=== PATIENT | male | born 1950 | race Caucasian/White ===

== ENCOUNTER 2016-03-31 15:05 | Emergency (ER) | payer OTHER ==
[~2016-03-31] VITALS: Ht 167.6 cm; Wt 77.1 kg
[~2016-03-31 15:05] MED LIST: 'XANAX0.5 MG PO; 'XANAX1 MG PO; ALBUTEROL0.09 MG/A2 IH; ALPRAZOLAM0.5 M1 PO; ALPRAZOLAM0.5 M3 PO; ANTIVERT25 MG PO; ASPIRIN81 M1 PO; AVPAK PRIMIDON250 M1 PO; AVPAK PRIMIDONE50 M1 PO; BACTRIM DS 8001 TA1 PO; BACTROBAN2% TP; BENTYL20 MG PO; BUPROPION HCL300 MG PO; BUPROPION300 MG PO; CEPHALEXIN500 M1 PO; CIPRO500 MG PO; COUMADIN2 M1 PO; FINASTERIDE5 M1 PO; FINASTERIDE5 MG PO; FLAGYL500 MG PO; FLEXERIL10 MG PO; FOLIC ACID1 MG PO; GABAPENTIN TAB600 MG PO; GABAPENTIN800 MG PO; Gabapentin PO; HYDROCODONE BIT1 T11 PO; INDERAL LA60 M1 PO; INDERAL80 MG PO; Inderal LA PO; KEFLEX500 M1 PO; LEVOTHROID0.05 MG PO; LITHIUM CARB300 MG PO; LITHIUM CARBON300 MG PO; METFORMIN500 MG PO; MIRTAZAPINE45 MG PO; Mysoline50 MG PO; NEURONTIN100 MG PO; Orphenadrine C100 MG PO; PAROXETINE20 MG PO; PHARMASSURE FO0.4 MG PO; PRILOSEC20 MG PO; Synthroid,Levo75 MCG PO; TEMAZEPAM30 MG PO; TERAZOSIN HCL2 M1 PO; TRAMADOL HCL50 MG PO; TRAZODONE50 MG PO; ULTRAM50 MG PO; VICODIN ES 7501 TAB PO; VITAMIN B125000 MCG SL; VITAMIN D5000 I3 PO; WARFARIN SOD5 MG PO; WARFARIN2 MG PO; WELLBUTRIN XL300 MG PO; ZOVIRAX800 MG PO
[2016-03-31] MEDS ORDERED: AMLODIPINE BESYL5 MG PO (15:40)
[2016-03-31] MEDS ORDERED: PROSCAR5 M1 PO (15:41)
[2016-03-31 16:17] LABS: BASO % 0.7 % (0.0-1.0); EOS # 0.3 10*3/uL (0.0-0.4); EOS % 5.1 % (1.0-4.0); HEMATOCRIT 40.3 % (42.0-52.0); HEMOGLOBIN 12.9 g/dl (14.0-18.0); LYMPH # 1.9 10*3/uL (1.3-4.4); LYMPH % 34.5 % (27.0-41.0); MEAN CORPUSCULAR HGB 32.7 pg (27.0-31.0); MEAN PLATELET VOLUME 9.4 fl (9.6-12.3); MONO # 0.3 10*3/uL (0.1-1.0); MONO % 4.5 % (3.0-9.0); PLATELET COUNT AUTOMATED 177 10*3/uL (130-400); RED BLOOD COUNT 3.95 10*6/uL (4.50-5.90); RED CELL DISTRI WIDTH 12.6 % (0-14.5); WHITE BLOOD COUNT 5.5 10*3/uL (4.8-10.8)
[2016-03-31 16:27] LABS: PROTHROMBIN TIME 10.6 SECONDS (9.0-12.4)
[2016-03-31 16:41] LABS: ALBUMIN 3.7 gm/dl (3.1-4.5); BILIRUBIN, TOTAL 0.4 mg/dl (0.2-1.0); POTASSIUM 3.9 mmol/L (3.5-5.1); TOTAL PROTEIN 7.4 gm/dL (6.4-8.2)
[2016-03-31 16:45] LABS: MAGNESIUM 1.9 mg/dL (1.5-2.1)
[2016-03-31 17:59] LABS: BILIRUBIN 1+ (NEGATIVE); BLOOD NEGATIVE (NEGATIVE); CLARITY SL CLOUDY (CLEAR); COLOR YELLOW (YELLOW); GLUCOSE NEGATIVE (NEGATIVE); KETONE TRACE (NEGATIVE); LEUKO ESTERASE NEGATIVE (NEGATIVE); NITRITE NEGATIVE (NEGATIVE); PH 5.5 (5.0-9.0); PROTEIN 1+ (NEGATIVE); SPECIFIC GRAVITY 1.025 (1.005-1.030); UROBILINOGEN 0.2 E.U./dl (0.2-1.0)
[2016-03-31 18:16] LABS: HYALINE CAST TNTC
[2016-03-31 18:17] LABS: URINE REFLEX COMMENT YES (NO)
== END 2016-03-31 18:04 | disposition home or self-care (01) ==
LOC: ED 15:05
PROVIDERS: Registered Nurse
DX: G25.0 Essential tremor (principal); R06.09 Other forms of dyspnea; R53.1 Weakness; R53.83 Other fatigue; R19.7 Diarrhea, unspecified; Z79.899 Other long term (current) drug therapy

== ENCOUNTER → 2016-07-14 | Outpatient (CLI) | payer OTHER ==
[~2016-07-14] MED LIST changes: +AMLODIPINE BESYL5 MG PO; +PROSCAR5 M1 PO
[2016-07-14 09:32] LABS: HEMOGLOBIN A1c 4.8 % (4.8-5.6)
[2016-07-14 09:42] LABS: ALBUMIN 3.6 gm/dl (3.1-4.5); BILIRUBIN, DIRECT < 0.1 mg/dL (0.0-0.2); BILIRUBIN, TOTAL 0.3 mg/dl (0.2-1.0); BUN 11 mg/dl (7-24); CARBON DIOXIDE 27 mmol/L (21-32); CHLORIDE 111 mmol/L (98-107); CHOLESTEROL 203 mg/dL (<200); EST GLOM FILT AFRICAN AMERICAN 57 ml/min; GLUCOSE 134 mg/dL (65-99); POTASSIUM 4.3 mmol/L (3.5-5.1); SGOT/AST 12 IU/L (3-35); SGPT/ALT 16 U/L (12-78); SODIUM 146 mmol/L (136-145); THYROXINE (T4) TOTAL 8.2 ug/dl (4.5-12.1); TOTAL PROTEIN 7.1 gm/dL (6.4-8.2); TRIGLYCERIDES 202 mg/dl (<150); VLDL CHOLESTEROL 40 mg/dL (6-40)
[2016-07-14 09:45] LABS: BASO % 0.5 % (0.0-1.0); EOS # 0.4 10*3/uL (0.0-0.4); EOS % 6.4 % (1.0-4.0); HEMATOCRIT 40.4 % (42.0-52.0); LYMPH # 2.3 10*3/uL (1.3-4.4); LYMPH % 36.4 % (27.0-41.0); MEAN CELL VOLUME 105.5 fl (80.0-94.0); MEAN CORPUSCULAR HGB 31.3 pg (27.0-31.0); MEAN CORPUSCULAR HGB CONC 29.7 g/dl (33.0-37.0); MEAN PLATELET VOLUME 9.6 fl (9.6-12.3); MONO # 0.3 10*3/uL (0.1-1.0); NEUT # 3.3 10*3/uL (2.3-7.9); NEUT % 51.4 % (47.0-73.0); PLATELET COUNT AUTOMATED 212 10*3/uL (130-400); RED BLOOD COUNT 3.83 10*6/uL (4.50-5.90); RED CELL DISTRI WIDTH 13.3 % (0-14.5); WHITE BLOOD COUNT 6.4 10*3/uL (4.8-10.8)
[2016-07-14 09:49] LABS: ALKALINE PHOSPHATASE 94 U/L (45-117); HDL CHOLESTEROL 43 mg/dl (40-60); LDL CHOLESTEROL 120 mg/dL (9-159)
== END | disposition home or self-care (01) ==
LOC: LAB 08:28
PROVIDERS: Nurse Practitioner Adult Health
DX: F31.81 Bipolar II disorder (principal); Z79.899 Other long term (current) drug therapy

== ENCOUNTER 2016-09-15 21:49 | Inpatient (IN) | payer OTHER ==
[~2016-09-15] VITALS: Ht 167.6 cm; Wt 63.5 kg
--- NOTE | ~2016-09-15 | PR ---
[employer], [place] PROGRESS NOTE NAME: BETZAIDA MANN UNIT #: [id number] ROOM: 407 DOCTOR: MARIELLE ANDRADE MD BIRTHDATE: [birth year] DOS: SUBJECTIVE: The patient is sitting up in a chair, states that he was unable to sleep that he takes normally 2 tablets of Xanax at home, he only had one tablet here. OBJECTIVE: VITAL SIGNS: Graphic trend shows blood pressure 144/74, pulse is 63, respirations 16, temperature 98. LUNGS: Clear. HEART: Regular. ABDOMEN: Obese, soft, nontender. EXTREMITIES: Without any edema. ASSESSMENT AND PLAN: 1. Frailty with falls, probably from underlying Parkinson's disease. 2. Adult failure to thrive for placement to a local nurse rehab facility. Hopefully he will be able to go tomorrow. 3. Type 2 diabetes mellitus. Blood sugars not available. We will start blood sugar checks. MARIELLE ANDRADE MD CM:PNTRANS [id number] MARIELLE ANDRADE MD 09/19/16 0750 interface
--- NOTE | ~2016-09-15 | DS ---
[place], [place] DISCHARGE SUMMARY NAME: BETZAIDA MANN UNIT #: [id number] ROOM: 407 DOCTOR: MARIELLE ANDRADE MD BIRTHDATE: [birth year] DOS: 09/20/2016 DIAGNOSES: 1. Adult failure to thrive. 2. Parkinson's with multiple falls. 3. Benign hypertension. 4. History of brain stimulator placement. 5. Bipolar disorder. 6. Megaloblastic anemia. 7. History of pulmonary embolism, on long-term use of anticoagulants. This was discontinued finally because of the multiple falls. 8. Type 2 diabetes mellitus, non-insulin dependent. MEDICATIONS: Omeprazole 20 daily, metformin 500 b.i.d., finasteride 5 mg daily, folic acid 0.4 mg daily, levothyroxine 75 mcg daily, vitamin D 5000 units daily, gabapentin 600 q.i.d., bupropion 300 mg daily, Xanax 0.5 mg twice a day p.r.n. for anxiety, lithium 300 mg twice a day, Flomax 0.4 daily, Avodart 0.5 daily. HOSPITAL COURSE: This patient is 65 years old, was brought in to Dr. Chavez's services after multiple falls at home. The patient was admitted and was monitored. PT, OT consultation, social service consult was obtained. He was encouraged to go to a rehab center for PT, OT. The patient is agreeable to do that and so the plan is to discharge him to home. CT of the head did not show any acute abnormalities. Blood sugars have been checked and they are controlled. We will need to have his brain stimulator checked at [facility]. His is making the appointments for that. Please make sure that he has arrangements to travel there for that appointment if he is at the group home at the time of the appointment. He is going to a local group home for PT, OT today. DIET: ADA 1800. [place], [place] DISCHARGE SUMMARY NAME: BETZAIDA MANN UNIT #: [id number] ROOM: 407 DOCTOR: MARIELLE ANDRADE MD BIRTHDATE: [birth year] MARIELLE ANDRADE MD CM:ROMEO [phone] MARIELLE ANDRADE MD 09/20/16 0856 interface
--- NOTE | ~2016-09-15 | PR ---
[place], [place] PROGRESS NOTE [id number] UNIT #: [id number] ROOM: 407 DOCTOR: MARIELLE ANDRADE MD BIRTHDATE: [birth year] DOS: SUBJECTIVE: The patient is feeling good, has no complaints. OBJECTIVE EXAMINATION: VITAL SIGNS: Graphic trend shows pressure 132/70, pulse is 67, respirations 17, temperature 97.7. LUNGS: Clear. HEART: Regular. ABDOMEN: Obese, soft. EXTREMITIES: Without any edema. ASSESSMENT AND PLAN: 1. Frailty with falls. The patient is getting PT, OT here. 2. Adult failure to thrive with ambulatory dysfunction. The patient to go to [facility] when bed is available. 3. Long-term use of anticoagulants. The patient is no longer on Coumadin because of the continued falls. MARIELLE ANDRADE MD CM:PNTRANS [phone] MARIELLE ANDRADE MD 09/18/16 0955 interface
--- NOTE | ~2016-09-15 | PR ---
[place], [place] PROGRESS NOTE NAME: BETZAIDA MANN UNIT #: [id number] ROOM: 407 DOCTOR: SABA MACK MD BIRTHDATE: [birth year] DOS: 09/17/2016 SUBJECTIVE: The patient says he is ambulating a little better than yesterday. OBJECTIVE: GENERAL APPEARANCE: The patient is alert and oriented x 3, in no visible distress. VITAL SIGNS: Blood pressure 132/68, heart rate of 57 beats per minute, breathing 20 times per minute, temperature 98.4 degrees Fahrenheit. HEENT AND NECK: Exam within normal limits. CARDIOVASCULAR SYSTEM: Heart rate is regular in rate and rhythm. S1 and S2 normally audible. LUNGS: Clear to auscultation. ABDOMEN: Soft, nontender. No obvious organomegaly. Bowel sounds are present. EXTREMITIES: Without significant cyanosis or edema. IMPRESSION: 1. The patient with generalized weakness and failure to thrive with chronic gait abnormality. The patient was literally walking into the singh yesterday evening, so I delayed his discharge to home. This morning, he is still walking but walking with minimal assist. The patient is very high risk for falling at home and his anticoagulation with Coumadin has been held back. The patient fell back and hit back of his head requiring mehdi for the laceration. I will try to get him to a group home facility for rehabilitation, so he is safer with his ambulation because he is living by himself at home these days. 2. Benign essential tremors, treated with brain stimulator. 3. Hypothyroidism, treated with levothyroxine. 4. Gastroesophageal reflux disease and esophagitis, asymptomatic with omeprazole. 5. Type 2 diabetes mellitus. Blood sugars are reasonably controlled. 6. History of pulmonary embolism, presently asymptomatic. The patient had to be taken off anticoagulation because he keeps falling and also this time hit the back of his head. [place], [place] PROGRESS NOTE NAME: BETZAIDA MANN UNIT #: [id number] ROOM: 407 DOCTOR: SABA MACK MD BIRTHDATE: [birth year] SABA MACK MD CM:PNTRANS [id number] SABA MACK MD 09/18/16 0022 interface
--- NOTE | ~2016-09-15 | PR ---
[place], [place] PROGRESS NOTE NAME: BETZAIDA MANN UNIT #: [id number] ROOM: 407 DOCTOR: MARIELLE ANDRADE MD BIRTHDATE: [birth year] DOS: SUBJECTIVE: The patient is doing fine without any complaints. OBJECTIVE: VITAL SIGNS: Graphic trend shows a pressure of 127/68, pulse of 57, respirations 20, temperature 98.6. LUNGS: Clear. HEART: Regular. ABDOMEN: Obese, soft. EXTREMITIES: Without any edema. LABORATORY DATA: White blood cell count is 6.4, hemoglobin 10.1, hematocrit 32.6. BMP: Glucose 90, BUN 14, creatinine 1.33. GFR is 54, stage 3 renal failure. Potassium is 4.4. ASSESSMENT AND PLAN: 1. Adult failure to thrive for placement today to a local fpc. Awaiting certification from the insurance company. 2. Parkinson's with multiple falls on physical therapy. MARIELLE ANDRADE MD CM:PNTRANS [id number] MARIELLE ANDRADE MD 09/20/16 1017 interface
--- NOTE | ~2016-09-15 | WRIGHTHP ---
[place], [place] PATIENT HISTORY AND PHYSICAL EXAM NAME: BETZAIDA MANN [facility] #: [id number] UNIT #: [id number] ROOM: 407 DOCTOR: SABA MACK MD BIRTHDATE: [birth year] DOS: 09/16/2016 HISTORY OF PRESENT ILLNESS: The patient is a 65-year-old gentleman with a past medical history of; 1. Generalized weakness, failure to thrive with recurrent falls, history of coronary artery disease of the [place] vessels. 2. Benign essential hypertension. 3. History of pulmonary embolism. 4. History of diverticular bleeds in the past. 5. Bipolar disorder. 6. Bright's esophagus. 7. Right inguinal hernia repair. 8. Megaloblastic anemia in the past and folic acid deficiency. Brain stimulator placed for controlling essential tremors. The patient presented to the Emergency Department after he fell at home and hit his head. In the ER, the patient was evaluated with a CT of the head and was found to have a laceration at the back of the head, which was closed with mehdi. The patient had unsteady gait and was admitted for further management. After admission, the patient still has very unsteady gait and he is living by himself these days. No chest pain, no shortness of breath, no GI or urinary symptoms. REVIEW OF SYSTEMS: LUNGS: No shortness of breath or wheezing. GASTROINTESTINAL: No nausea, vomiting, diarrhea or constipation. CARDIOVASCULAR: No palpitations or chest pains. FAMILY HISTORY: Noncontributory. MEDICATIONS: The patient takes Flomax, omeprazole, metformin, lithium, gabapentin, finasteride, bupropion, levothyroxine, Xanax. ALLERGIES: No known drug allergies. FAMILY HISTORY: Noncontributory. PHYSICAL EXAMINATION: GENERAL APPEARANCE: He is alert and oriented x 3, in no visible distress. When he walks, he is unable to walk straight and he is running into singh. HEENT AND NECK: Extraocular movements are intact. Sclerae are anicteric. Oral mucosa is moist and clean. No obvious facial weakness. Neck is supple without any lymphadenopathy. No thyromegaly. No JVD. No carotid arterial bruits. LUNGS: Clear to auscultation. No wheezing. No rhonchi. CARDIOVASCULAR SYSTEM: Heart rate is regular in rate and rhythm. S1 and S2 normally audible. No significant murmur or any other abnormal cardiac sounds. ABDOMEN: Soft, nontender. No obvious organomegaly. Bowel sounds are present. No obvious herniation. EXTREMITIES: Without significant cyanosis or edema. Warm to touch. CENTRAL NERVOUS SYSTEM: Normal other than his gait. [place], [place] PATIENT HISTORY AND PHYSICAL EXAM NAME: BETZAIDA MANN UNIT #: [id number] ROOM: 407 DOCTOR: SABA MACK MD BIRTHDATE: [birth year] LABORATORY DATA: CT of the head and cervical spine were without any acute abnormality. IMPRESSION AND PLAN: 1. The patient with generalized weakness and adult failure to thrive with very poor gait and recurrent falls. I will try to get him to [facility] facility for rehabilitation. The patient is living by himself these days. 2. Benign essential tremors, controlled with brain stimulator. 3. Benign prostatic hypertrophy and urinary retention controlled with finasteride and Flomax. 4. Gastroesophageal reflux disease and esophagitis, asymptomatic with omeprazole. 5. Type 2 diabetes mellitus. I will monitor blood sugars and treat accordingly. The patient is on metformin. 6. Hypothyroidism, treated with levothyroxine. 7. Recurrent falls with laceration to the back of the head, treated with mehdi. CT scan of the head did not show any acute abnormality. SABA MACK MD CM:HISPHYS:PATIENT HISTORY AND PHYSICAL EXAMINATION 32 24 SABA MACK MD 09/16/162223 interface
[2016-09-15 22:06] VITALS: BP 103/65
[2016-09-16 01:25] VITALS: BP 142/65
[2016-09-16] MEDS ORDERED: AVODART0.5 M1 PO (01:52)
[2016-09-16] MEDS ORDERED: FLOMAX0.4 MG PO (01:52)
[2016-09-16 08:00] VITALS: BP 114/72
[2016-09-16 16:00] VITALS: BP 138/73
[2016-09-16 21:37] VITALS: BP 119/62
[2016-09-17] VITALS: BP 110/65
[2016-09-17 06:12] LABS: BASO % 0.4 % (0.0-1.0); EOS # 0.4 10*3/uL (0.0-0.4); EOS % 7.2 % (1.0-4.0); HEMOGLOBIN 10.6 g/dl (14.0-18.0); LYMPH # 2.4 10*3/uL (1.3-4.4); LYMPH % 43.4 % (27.0-41.0); MEAN CELL VOLUME 101.8 fl (80.0-94.0); MEAN CORPUSCULAR HGB 31.7 pg (27.0-31.0); MEAN CORPUSCULAR HGB CONC 31.2 g/dl (33.0-37.0); MEAN PLATELET VOLUME 9.9 fl (9.6-12.3); MONO # 0.3 10*3/uL (0.1-1.0); MONO % 5.7 % (3.0-9.0); NEUT # 2.4 10*3/uL (2.3-7.9); NEUT % 43.1 % (47.0-73.0); PLATELET COUNT AUTOMATED 159 10*3/uL (130-400); RED BLOOD COUNT 3.34 10*6/uL (4.50-5.90); RED CELL DISTRI WIDTH 13.2 % (0-14.5); WHITE BLOOD COUNT 5.4 10*3/uL (4.8-10.8)
[2016-09-17 06:50] LABS: POTASSIUM 4.3 mmol/L (3.5-5.1)
[2016-09-17 08:00] VITALS: BP 132/68
[2016-09-17 16:00] VITALS: BP 127/67; BP 137/70
[2016-09-17 20:00] VITALS: BP 120/67
[2016-09-18] VITALS: BP 132/70
[2016-09-18 08:00] VITALS: BP 126/70
[2016-09-18 12:00] VITALS: BP 132/65
[2016-09-18 16:00] VITALS: BP 141/67
[2016-09-18 20:00] VITALS: BP 129/70
[2016-09-19] VITALS: BP 144/74
[2016-09-19 08:00] VITALS: BP 160/76
[2016-09-19 16:00] VITALS: BP 136/80
[2016-09-19 20:00] VITALS: BP 115/67
[2016-09-20] VITALS: BP 127/68
[2016-09-20 06:28] LABS: BASO % 0.6 % (0.0-1.0); EOS # 0.4 10*3/uL (0.0-0.4); EOS % 6.7 % (1.0-4.0); HEMATOCRIT 32.6 % (42.0-52.0); HEMOGLOBIN 10.1 g/dl (14.0-18.0); LYMPH # 2.8 10*3/uL (1.3-4.4); LYMPH % 43.6 % (27.0-41.0); MEAN CELL VOLUME 102.2 fl (80.0-94.0); MEAN CORPUSCULAR HGB 31.7 pg (27.0-31.0); MEAN PLATELET VOLUME 9.6 fl (9.6-12.3); MONO # 0.3 10*3/uL (0.1-1.0); MONO % 5.2 % (3.0-9.0); NEUT # 2.8 10*3/uL (2.3-7.9); NEUT % 43.6 % (47.0-73.0); PLATELET COUNT AUTOMATED 169 10*3/uL (130-400); RED BLOOD COUNT 3.19 10*6/uL (4.50-5.90); RED CELL DISTRI WIDTH 13.2 % (0-14.5); WHITE BLOOD COUNT 6.4 10*3/uL (4.8-10.8)
[2016-09-20 06:58] LABS: BUN 14 mg/dl (7-24); CARBON DIOXIDE 28 mmol/L (21-32); CHLORIDE 109 mmol/L (98-107); EST GLOM FILT AFRICAN AMERICAN > 60 ml/min; GLUCOSE 90 mg/dL (65-99); POTASSIUM 4.3 mmol/L (3.5-5.1); SODIUM 144 mmol/L (136-145)
[2016-09-20 08:00] VITALS: BP 132/80
[2016-09-20 16:00] VITALS: BP 146/68
[2016-09-21] VITALS: BP 150/67
[2016-09-21 08:00] VITALS: BP 170/78
[2016-09-22] VITALS: BP 106/58
[2016-09-22 08:00] VITALS: BP 110/63
== END 2016-09-22 12:02 | disposition home health service (06) | DRG 581 ==
LOC: ED 21:49 → 4E 23:56 → EDHOLD 23:56 → 4E 09-16 00:11
PROVIDERS: Internal Medicine
PROC: 0WQ0XZZ Repair Head, External Approach (ICD-10-PCS; principal; 2016-09-15)
DX: S01.01XA Laceration without foreign body of scalp, initial encounter (principal); G20 Parkinson's disease; D53.1 Other megaloblastic anemias, not elsewhere classified; R62.7 Adult failure to thrive; W18.39XA Other fall on same level, initial encounter; Y93.89 Activity, other specified; Y92.098 Other place in other non-institutional residence as the place of occurrence of the external cause; Y99.8 Other external cause status; R53.1 Weakness; Z86.711 Personal history of pulmonary embolism; K22.70 Barrett's esophagus without dysplasia; N40.0 Benign prostatic hyperplasia without lower urinary tract symptoms; R33.9 Retention of urine, unspecified; K21.0 Gastro-esophageal reflux disease with esophagitis; E11.9 Type 2 diabetes mellitus without complications; E03.9 Hypothyroidism, unspecified; Z79.01 Long term (current) use of anticoagulants; R26.81 Unsteadiness on feet; F31.9 Bipolar disorder, unspecified; I10 Essential (primary) hypertension

== ENCOUNTER 2016-09-26 20:12 | Emergency (ER) | payer OTHER ==
[~2016-09-26] VITALS: Ht 167.6 cm; Wt 63.5 kg
[~2016-09-26 20:12] MED LIST changes: +AVODART0.5 M1 PO; +FLOMAX0.4 MG PO
== END 2016-09-26 22:14 | disposition home or self-care (01) ==
LOC: ED 20:12
DX: S20.212A Contusion of left front wall of thorax, initial encounter (principal); E11.9 Type 2 diabetes mellitus without complications; I25.2 Old myocardial infarction; Z79.899 Other long term (current) drug therapy; W01.198A Fall on same level from slipping, tripping and stumbling with subsequent striking against other object, initial encounter; Y93.89 Activity, other specified; Y92.091 Bathroom in other non-institutional residence as the place of occurrence of the external cause; Y99.8 Other external cause status

== ENCOUNTER 2016-10-06 15:18 | Inpatient (IN) | payer OTHER ==
[~2016-10-06] VITALS: Ht 167.6 cm; Wt 70.5 kg
[2016-10-06 15:24] VITALS: BP 139/80
[2016-10-06 16:02] LABS: BASO % 0.5 % (0.0-1.0); EOS # 0.4 10*3/uL (0.0-0.4); EOS % 6.6 % (1.0-4.0); HEMOGLOBIN 11.3 g/dl (14.0-18.0); LYMPH # 2.3 10*3/uL (1.3-4.4); LYMPH % 38.8 % (27.0-41.0); MEAN CELL VOLUME 99.2 fl (80.0-94.0); MEAN CORPUSCULAR HGB 31.1 pg (27.0-31.0); MEAN CORPUSCULAR HGB CONC 31.4 g/dl (33.0-37.0); MEAN PLATELET VOLUME 9.7 fl (9.6-12.3); MONO # 0.3 10*3/uL (0.1-1.0); MONO % 4.5 % (3.0-9.0); NEUT # 2.9 10*3/uL (2.3-7.9); NEUT % 49.4 % (47.0-73.0); PLATELET COUNT AUTOMATED 186 10*3/uL (130-400); RED BLOOD COUNT 3.63 10*6/uL (4.50-5.90); RED CELL DISTRI WIDTH 13.2 % (0-14.5); WHITE BLOOD COUNT 5.8 10*3/uL (4.8-10.8)
[2016-10-06 16:11] LABS: PROTHROMBIN TIME 10.7 SECONDS (9.0-12.4)
[2016-10-06 16:18] LABS: ALBUMIN 3.3 gm/dl (3.1-4.5); ALKALINE PHOSPHATASE 110 U/L (45-117); BILIRUBIN, TOTAL 0.3 mg/dl (0.2-1.0); BUN 14 mg/dl (7-24); C-REACTIVE PROTEIN 1.72 MG/DL (0-0.3); CARBON DIOXIDE 23 mmol/L (21-32); CHLORIDE 108 mmol/L (98-107); CKMB 0.6 ng/ml (0.5-3.6); CPK 30 U/L (39-308); EST GLOM FILT AFRICAN AMERICAN 50 ml/min; GLUCOSE 116 mg/dL (65-99); MAGNESIUM 1.9 mg/dL (1.5-2.1); SGOT/AST 9 IU/L (3-35); SGPT/ALT 12 U/L (12-78); SODIUM 140 mmol/L (136-145); TOTAL PROTEIN 6.8 gm/dL (6.4-8.2)
[2016-10-06 16:21] LABS: TROPONIN I < 0.015 ng/ml (<0.045)
[2016-10-06 16:36] LABS: BILIRUBIN NEGATIVE (NEGATIVE); BLOOD NEGATIVE (NEGATIVE); CLARITY CLEAR (CLEAR); COLOR YELLOW (YELLOW); GLUCOSE NEGATIVE (NEGATIVE); KETONE NEGATIVE (NEGATIVE); LEUKO ESTERASE NEGATIVE (NEGATIVE); NITRITE NEGATIVE (NEGATIVE); PH 5.5 (5.0-9.0); PROTEIN TRACE (NEGATIVE)
[2016-10-06 16:55] LABS: RBC 0-2 rbc/hpf (0-2); URINE REFLEX COMMENT NO (NO); WBC 0-2 wbc/hpf (0-5)
[2016-10-06 16:58] LABS: FOLIC ACID > 24.00 ng/mL (>5.38)
[2016-10-06 17:49] VITALS: BP 152/71
[2016-10-06 17:59] LABS: LA>2 REFLEX 2 HR DRAW NOW
[2016-10-06 18:17] LABS: LA>2 RFLX FOLLOW UP AT 2 HRS 2.1 mmol/L (0.4-2.0)
[2016-10-06 18:45] VITALS: BP 136/79
[2016-10-06 20:00] VITALS: BP 103/72; BP 130/62
[2016-10-06 20:08] LABS: LA>2 REFLEX 4 HR DRAW NOW
[2016-10-07] VITALS: BP 105/70
[2016-10-07 07:46] LABS: BUN 16 mg/dl (7-24); CARBON DIOXIDE 26 mmol/L (21-32); CHLORIDE 109 mmol/L (98-107); EST GLOM FILT AFRICAN AMERICAN > 60 ml/min; GLUCOSE 86 mg/dL (65-99); SODIUM 141 mmol/L (136-145)
[2016-10-07 08:00] VITALS: BP 129/62
[2016-10-07 12:00] VITALS: BP 125/64
[2016-10-07 16:00] VITALS: BP 109/67
[2016-10-07 20:00] VITALS: BP 123/64
[2016-10-07 23:56] VITALS: BP 118/63
[2016-10-08 08:00] VITALS: BP 126/72
[2016-10-08 12:00] VITALS: BP 125/75
[2016-10-08 16:00] VITALS: BP 128/68
[2016-10-08 20:00] VITALS: BP 153/65
[2016-10-09] VITALS: BP 153/77
== END 2016-10-09 08:45 | disposition home health service (06) | DRG 917 ==
LOC: ED 15:18 → 4E 17:39 → EDHOLD 17:39 → 4E 18:08
PROVIDERS: Emergency Medicine; Internal Medicine
DX: T56.891A Toxic effect of other metals, accidental (unintentional), initial encounter (principal); N17.0 Acute kidney failure with tubular necrosis; F31.31 Bipolar disorder, current episode depressed, mild; G20 Parkinson's disease; F41.9 Anxiety disorder, unspecified; E11.9 Type 2 diabetes mellitus without complications; E53.8 Deficiency of other specified B group vitamins; R29.6 Repeated falls; W18.09XA Striking against other object with subsequent fall, initial encounter; Y93.89 Activity, other specified; Y92.89 Other specified places as the place of occurrence of the external cause; Y99.8 Other external cause status; Z87.828 Personal history of other (healed) physical injury and trauma; Z95.5 Presence of coronary angioplasty implant and graft; Z82.49 Family history of ischemic heart disease and other diseases of the circulatory system; Z83.3 Family history of diabetes mellitus; Z80.8 Family history of malignant neoplasm of other organs or systems

== ENCOUNTER 2016-11-09 17:07 | Inpatient (IN) | payer OTHER ==
[~2016-11-09] VITALS: Ht 167.6 cm; Wt 69.2 kg
--- NOTE | ~2016-11-09 | PR ---
[place], [place] PROGRESS NOTE NAME: BETZAIDA MANN [facility] #: [id number] UNIT #: [id number] ROOM: 410 DOCTOR: FREDERICK BRUCE,SABA Williamson BIRTHDATE: [birth year] DOS: 11/11/2016 SUBJECTIVE: The patient is feeling about the same, working with physical therapy. OBJECTIVE: VITAL SIGNS: Blood pressure 149/60, heart rate of 71 beats per minute, afebrile. IMPRESSION: 1. Chronic left leg swelling, but with history of pulmonary embolism and the patient being off anticoagulation because of recurrent falls and also repeated injury to the head because of the falls. I will check his D-dimers to be sure. 2. Advanced disability. The patient working with physical therapy for advanced adult failure to thrive and recurrent falls and disability. 3. Benign essential tremor with the brain stimulator in place. 4. Type 2 diabetes mellitus. We are monitoring blood sugars and treating accordingly. 5. Previous history of pulmonary embolism. 6. Benign essential hypertension with controlled blood pressures. 7. Benign prostatic hyperplasia and urinary retention, asymptomatic with treatment. SABA MACK MD CM:PNTRANS [id number] SABA MACK MD 11/12/16 0525 interface
--- NOTE | ~2016-11-09 | DS ---
[place], [place] DISCHARGE SUMMARY [id number] UNIT #: [id number] ROOM: 410 DOCTOR: SABA MACK MD BIRTHDATE: [birth year] DOS: 11/12/2016 DISCHARGE DIAGNOSES: 1. Adult failure to thrive with recurrent falls. 2. Coronary artery disease of the [place] vessels without chest pain. 3. Benign essential hypertension. 4. Previous history of pulmonary embolism. CT angiogram was negative for pulmonary embolism during this admission. 5. Previous history of diverticular bleed from the colon. 6. Bipolar disorder. 7. Bright's esophagus. 8. Right inguinal hernia repair. 9. Megaloblastic anemia in the past with folic acid deficiency. 10. Deep brain stimulator placed for essential tremors. 11. Type 2 diabetes mellitus. The patient presented to the office with recurrent falls at home and he was a high risk for injury to himself, so he was admitted to [facility] because a 3-day stay at the hospital was required for custodial facility. Now patient is going to [facility] for rehabilitation. History of deep venous thrombosis and pulmonary embolism for which he was on anticoagulation which had to be stopped because of his recurrent fall which included hits to the head, so he is a very high risk for head injury and bleeds. Type 2 diabetes mellitus. Blood sugars are monitored and treated. Benign essential hypertension, we continued monitoring his blood pressures and treatment. Benign prostatic hyperplasia and urinary retention, asymptomatic with treatment. DISCHARGE MANAGEMENT: Metformin 500 mg b.i.d., Sinemet 25/100 three times a day, Flomax 0.4 mg a day, Avodart 0.5 mg a day, Wellbutrin XL 300 mg daily, omeprazole 20 mg a day, levothyroxine 75 mcg daily, lithium carbonate 300 mg b.i.d., gabapentin 600 mg every 6 hours, Xanax 0.5 mg b.i.d. p.r.n. for anxiety. Consult physical therapy and occupational therapy. [place], [place] DISCHARGE SUMMARY NAME: BETZAIDA MANN UNIT #: [id number] ROOM: 410 DOCTOR: SABA MACK MD BIRTHDATE: [birth year] SABA MACK MD CM:ROMEO [id number] SABA MACK MD 11/13/16 0612 interface
--- NOTE | ~2016-11-09 | WRIGHTHP ---
[place], [place] PATIENT HISTORY AND PHYSICAL EXAM NAME: BETZAIDA MANN [facility] #: [id number] UNIT #: [id number] ROOM: 410 DOCTOR: SABA MACK MD BIRTHDATE: [birth year] DOS: 11/09/2016 HISTORY OF PRESENT ILLNESS: The patient is a 65-year-old gentleman with a past medical history of: 1. Generalized weakness, failure to thrive, recurrent falls. 2. History of coronary artery disease of [place] vessels. 3. Benign essential hypertension. 4. History of pulmonary embolism. 5. History of diverticular bleed from the colon in the past. 6. Bipolar disorder. 7. Bright's esophagus. 8. Right inguinal hernia repair. 9. Megaloblastic anemia in the past with folic acid deficiency. 10. Deep brain stimulator placed for essential tremors. 11. Type 2 diabetes mellitus. 12. Adult failure to thrive. The patient presented to my office yesterday with recurrent falls at home. The patient is a high risk for injury to himself and he wanted to be admitted to the residential. Direct admission to the residential was not possible, so the patient was admitted to [facility] and Manager Analysis were consulted along with Physical Therapy to place him at the residential. No chest pain, shortness of breath. No GI or urinary symptoms. There is generalized weakness and recurrent falls. REVIEW OF SYSTEMS: LUNGS: No increasing shortness of breath or wheezing. GASTROINTESTINAL: No nausea, vomiting, diarrhea or constipation. CARDIOVASCULAR: No chest pains or palpitations. HOME MEDICATIONS: Omeprazole, metformin, finasteride, folic acid, levothyroxine, vitamin D, gabapentin, Xanax, lithium, Flomax, Avodart. SOCIAL HISTORY: Denies smoking cigarettes, alcohol and drug abuse. ALLERGIES: No known drug allergies. PHYSICAL EXAMINATION: GENERAL: Alert and oriented x 3, in no visible distress, generalized weakness. HEENT AND NECK: Extraocular movements are intact. Sclerae are anicteric. Oral mucosa is moist and clean. No obvious facial weakness. Neck is supple without any lymphadenopathy. No thyromegaly. No JVD. No carotid arterial bruits. LUNGS: Clear to auscultation. No wheezing. No rhonchi. CARDIOVASCULAR SYSTEM: Heart rate is regular in rate and rhythm. S1 and S2 normally audible. No significant murmur or any other abnormal cardiac sounds. ABDOMEN: Soft, nontender. No obvious organomegaly. Bowel sounds are present. No obvious herniation. EXTREMITIES: Without significant cyanosis or edema. Warm to touch. CENTRAL NERVOUS SYSTEM: Alert and oriented x 3. Cranial nerves II-XII are [place], [place] PATIENT HISTORY AND PHYSICAL EXAM NAME: BETZAIDA MANN UNIT #: [id number] ROOM: 410 DOCTOR: SABA MACK MD BIRTHDATE: [birth year] intact. Speech is normal. The patient is able to move all extremities. Normal muscle strength. Deep tendon reflexes are equal on both sides. Plantars were downgoing. LABORATORY DATA: BUN and creatinine 15 and 1.3, otherwise normal serum electrolytes. Hemoglobin 10, MCV slightly elevated to 101.9 and MCH 31.5, normal platelets. IMPRESSION AND PLAN: 1. Adult failure to thrive with recurrent falls. Manager Analysis were consulted for prison facility placement. 2. Benign essential tremors, with brain stimulator in place. 3. Recurrent falls and risk of injury to the patient is very high. 4. Type 2 diabetes mellitus. Blood sugars to be followed and treated and are reasonably controlled these days. 5. History of pulmonary embolism, but anticoagulation had to be stopped because of recurrent and dangerous falls including patient hitting his head during his falls. 6. Benign essential hypertension. Blood pressure treatment to be continued and blood pressures to be monitored. 7. Benign prostatic hypertrophy and urinary retention, asymptomatic with treatment. SABA MACK MD CM:HISPHYS:PATIENT HISTORY AND PHYSICAL EXAMINATION 1047 1144 SABA MACK MD 11/10/16 1144 interface
[~2016-11-09 17:07] MED LIST changes: -LITHIUM CARB300 MG PO
[2016-11-09 18:00] VITALS: BP 130/70
[2016-11-09] MEDS ORDERED: ASPIRIN ADULT L81 M1 PO (19:01)
[2016-11-09] MEDS ORDERED: CARBIDOPA-LEVO1 EAC6 PO (19:01)
[2016-11-09] MEDS ORDERED: TERAZOSIN5 MG PO (19:02)
[2016-11-09] MEDS ORDERED: MELATONIN10 M4 PO (19:02)
[2016-11-09 20:00] VITALS: BP 112/65
[2016-11-10] VITALS: BP 127/64
[2016-11-10 04:48] LABS: BASO % 0.6 % (0.0-1.0); EOS # 0.3 10*3/uL (0.0-0.4); EOS % 5.1 % (1.0-4.0); HEMATOCRIT 32.3 % (42.0-52.0); LYMPH # 2.8 10*3/uL (1.3-4.4); LYMPH % 52.1 % (27.0-41.0); MEAN CELL VOLUME 101.9 fl (80.0-94.0); MEAN CORPUSCULAR HGB 31.5 pg (27.0-31.0); MEAN PLATELET VOLUME 9.7 fl (9.6-12.3); MONO # 0.2 10*3/uL (0.1-1.0); MONO % 4.5 % (3.0-9.0); NEUT % 37.5 % (47.0-73.0); PLATELET COUNT AUTOMATED 140 10*3/uL (130-400); RED BLOOD COUNT 3.17 10*6/uL (4.50-5.90); RED CELL DISTRI WIDTH 13.3 % (0-14.5); WHITE BLOOD COUNT 5.3 10*3/uL (4.8-10.8)
[2016-11-10 05:16] LABS: BUN 15 mg/dl (7-24); CARBON DIOXIDE 30 mmol/L (21-32); CHLORIDE 107 mmol/L (98-107); EST GLOM FILT AFRICAN AMERICAN > 60 ml/min; GLUCOSE 84 mg/dL (65-99); POTASSIUM 3.7 mmol/L (3.5-5.1); SODIUM 142 mmol/L (136-145)
[2016-11-10 08:00] VITALS: BP 138/80; BP 139/80
[2016-11-10 12:00] VITALS: BP 154/86
[2016-11-10 16:00] VITALS: BP 129/69
[2016-11-10 20:00] VITALS: BP 135/59
[2016-11-11] VITALS: BP 133/71
[2016-11-11 08:00] VITALS: BP 131/62
[2016-11-11 12:00] VITALS: BP 116/58
[2016-11-11 16:00] VITALS: BP 145/59
[2016-11-11 20:00] VITALS: BP 116/61
[2016-11-12] VITALS: BP 134/60
[2016-11-12 08:00] VITALS: BP 130/66
[2016-11-12 12:00] VITALS: BP 149/63
== END 2016-11-12 13:57 | disposition other institution (70) | DRG 641 ==
LOC: 4E 17:07
PROVIDERS: Internal Medicine
DX: R62.7 Adult failure to thrive (principal); I10 Essential (primary) hypertension; I25.10 Atherosclerotic heart disease of native coronary artery without angina pectoris; K22.70 Barrett's esophagus without dysplasia; E11.9 Type 2 diabetes mellitus without complications; F31.9 Bipolar disorder, unspecified; R33.9 Retention of urine, unspecified; G25.0 Essential tremor; W18.30XA Fall on same level, unspecified, initial encounter; Y93.89 Activity, other specified; Y92.009 Unspecified place in unspecified non-institutional (private) residence as the place of occurrence of the external cause; Y99.8 Other external cause status; Z86.711 Personal history of pulmonary embolism; Z79.84 Long term (current) use of oral hypoglycemic drugs; Z79.2 Long term (current) use of antibiotics; Z79.899 Other long term (current) drug therapy; R29.6 Repeated falls; N40.1 Benign prostatic hyperplasia with lower urinary tract symptoms; R33.8 Other retention of urine

== ENCOUNTER → 2017-01-12 | Outpatient (CLI) | payer OTHER ==
[~2017-01-12] MED LIST changes: +ASPIRIN ADULT L81 M1 PO; +CARBIDOPA-LEVO1 EAC6 PO; +MELATONIN10 M4 PO; +TERAZOSIN5 MG PO
[2017-01-12 08:57] LABS: BASO # 0.1 10*3/uL (0.0-0.1); BASO % 0.5 % (0.0-1.0); EOS # 0.6 10*3/uL (0.0-0.4); EOS % 5.4 % (1.0-4.0); HEMATOCRIT 42.3 % (42.0-52.0); HEMOGLOBIN 13.3 g/dl (14.0-18.0); LYMPH % 28.9 % (27.0-41.0); MEAN CELL VOLUME 99.1 fl (80.0-94.0); MEAN CORPUSCULAR HGB 31.1 pg (27.0-31.0); MEAN CORPUSCULAR HGB CONC 31.4 g/dl (33.0-37.0); MEAN PLATELET VOLUME 9.1 fl (9.6-12.3); MONO # 0.4 10*3/uL (0.1-1.0); MONO % 3.9 % (3.0-9.0); NEUT # 6.4 10*3/uL (2.3-7.9); NEUT % 60.8 % (47.0-73.0); PLATELET COUNT AUTOMATED 243 10*3/uL (130-400); RED BLOOD COUNT 4.27 10*6/uL (4.50-5.90); RED CELL DISTRI WIDTH 13.5 % (0-14.5); WHITE BLOOD COUNT 10.5 10*3/uL (4.8-10.8)
[2017-01-12 09:25] LABS: ALBUMIN 3.8 gm/dl (3.1-4.5); BILIRUBIN, DIRECT < 0.1 mg/dL (0.0-0.2); BUN 23 mg/dl (7-24); CHLORIDE 104 mmol/L (98-107); CHOLESTEROL 168 mg/dL (<200); CREATININE 1.78 mg/dL (0.70-1.30); HDL CHOLESTEROL 46 mg/dl (40-60); LDL CHOLESTEROL 88 mg/dL (9-159); SGOT/AST 11 IU/L (3-35); SGPT/ALT 7 U/L (12-78); SODIUM 139 mmol/L (136-145); THYROXINE (T4) TOTAL 12.8 ug/dl (4.5-12.1); TOTAL PROTEIN 7.7 gm/dL (6.4-8.2); TRIGLYCERIDES 171 mg/dl (<150); VLDL CHOLESTEROL 34 mg/dL (6-40)
[2017-01-12 09:31] LABS: ALKALINE PHOSPHATASE 106 U/L (45-117); THYROID STIM HORMONE (HS) 0.061 uIU/ml (0.358-4.75)
== END | disposition home or self-care (01) ==
LOC: LAB 08:36
PROVIDERS: Nurse Practitioner Adult Health
DX: F31.81 Bipolar II disorder (principal); Z79.899 Other long term (current) drug therapy

== ENCOUNTER → 2017-02-18 | Outpatient (CLI) | payer OTHER | END | disposition home or self-care (01) | LOC: LAB 13:25 | DX: F31.81 Bipolar II disorder (principal) ==

== ENCOUNTER → 2017-03-18 | Outpatient (CLI) | payer OTHER | END | disposition home or self-care (01) | LOC: ORTHO 00:38 | DX: M17.12 Unilateral primary osteoarthritis, left knee (principal); M25.462 Effusion, left knee ==

== ENCOUNTER 2017-05-02 21:58 | Inpatient (IN) | payer OTHER ==
[~2017-05-02] VITALS: Ht 167.6 cm; Wt 72.7 kg
[2017-05-02 22:02] VITALS: BP 92/51
[2017-05-02 22:52] LABS: BASO % 0.5 % (0.0-1.0); EOS # 0.4 10*3/uL (0.0-0.4); EOS % 6.6 % (1.0-4.0); HEMOGLOBIN 10.9 g/dl (14.0-18.0); MEAN CELL VOLUME 100.9 fl (80.0-94.0); MEAN CORPUSCULAR HGB 31.4 pg (27.0-31.0); MEAN CORPUSCULAR HGB CONC 31.1 g/dl (33.0-37.0); MEAN PLATELET VOLUME 9.7 fl (9.6-12.3); MONO # 0.3 10*3/uL (0.1-1.0); MONO % 4.4 % (3.0-9.0); NEUT # 3.1 10*3/uL (2.3-7.9); NEUT % 54.3 % (47.0-73.0); PLATELET COUNT AUTOMATED 143 10*3/uL (130-400); RED BLOOD COUNT 3.47 10*6/uL (4.50-5.90); RED CELL DISTRI WIDTH 13.5 % (0-14.5); WHITE BLOOD COUNT 5.7 10*3/uL (4.8-10.8)
[2017-05-02 23:12] LABS: ALBUMIN 3.4 gm/dl (3.1-4.5); ALKALINE PHOSPHATASE 116 U/L (45-117); BUN 13 mg/dl (7-24); CHLORIDE 108 mmol/L (98-107); CREATININE 1.55 mg/dL (0.70-1.30); POTASSIUM 4.1 mmol/L (3.5-5.1); SGOT/AST 10 IU/L (3-35); SGPT/ALT 8 U/L (12-78); SODIUM 141 mmol/L (136-145); TOTAL PROTEIN 6.4 gm/dL (6.4-8.2)
[2017-05-02 23:16] LABS: TROPONIN I < 0.015 ng/ml (<0.045)
[2017-05-02 23:30] VITALS: BP 114/55
[2017-05-02 23:37] LABS: ACT PARTIAL THROMBO TIME 23.8 SECONDS (20.8-31.5)
[2017-05-02 23:50] VITALS: BP 114/55; BP 118/71
[2017-05-03] MEDS ORDERED: ELIQUIS5 M1 PO (00:35)
[2017-05-03] MEDS ORDERED: LITHIUM CARBON150 MG PO (00:35)
[2017-05-03] MEDS ORDERED: ATORVASTATIN CA10 M1 PO (00:36)
[2017-05-03] MEDS ORDERED: PAROXETINE HCL20 MG PO (00:37)
[2017-05-03 04:00] VITALS: BP 84/60
[2017-05-03 04:37] LABS: BASO % 0.6 % (0.0-1.0); EOS # 0.3 10*3/uL (0.0-0.4); EOS % 5.8 % (1.0-4.0); HEMATOCRIT 32.1 % (42.0-52.0); LYMPH # 1.9 10*3/uL (1.3-4.4); LYMPH % 36.3 % (27.0-41.0); MEAN CELL VOLUME 103.2 fl (80.0-94.0); MEAN CORPUSCULAR HGB 32.2 pg (27.0-31.0); MEAN CORPUSCULAR HGB CONC 31.2 g/dl (33.0-37.0); MEAN PLATELET VOLUME 9.1 fl (9.6-12.3); MONO # 0.3 10*3/uL (0.1-1.0); MONO % 4.9 % (3.0-9.0); NEUT # 2.8 10*3/uL (2.3-7.9); PLATELET COUNT AUTOMATED 115 10*3/uL (130-400); RED BLOOD COUNT 3.11 10*6/uL (4.50-5.90); RED CELL DISTRI WIDTH 13.6 % (0-14.5); WHITE BLOOD COUNT 5.3 10*3/uL (4.8-10.8)
[2017-05-03 04:53] LABS: BUN 13 mg/dl (7-24); CHLORIDE 112 mmol/L (98-107); CREATININE 1.33 mg/dL (0.70-1.30); POTASSIUM 4.2 mmol/L (3.5-5.1); SODIUM 145 mmol/L (136-145)
[2017-05-03 04:58] LABS: CHOLESTEROL 129 mg/dL (<200); HDL CHOLESTEROL 38 mg/dl (40-60); LDL CHOLESTEROL 34 mg/dL (9-159); PHOSPHOROUS 2.8 mg/dL (2.5-4.9); TRIGLYCERIDES 285 mg/dl (<150); VLDL CHOLESTEROL 57 mg/dL (6-40)
[2017-05-03 05:04] LABS: THYROID STIM HORMONE (HS) 0.277 uIU/ml (0.358-4.75)
[2017-05-03 07:33] LABS: VITAMIN D, 25-HYDROXY 51.1 ng/mL (30-100)
[2017-05-03 08:00] VITALS: BP 126/76
[2017-05-03 08:18] LABS: BILIRUBIN NEGATIVE (NEGATIVE); BLOOD NEGATIVE (NEGATIVE); CLARITY CLEAR (CLEAR); COLOR YELLOW (YELLOW); GLUCOSE NEGATIVE (NEGATIVE); KETONE NEGATIVE (NEGATIVE); LEUKO ESTERASE NEGATIVE (NEGATIVE); NITRITE NEGATIVE (NEGATIVE); PH 6.5 (5.0-9.0); UROBILINOGEN 0.2 E.U./dl (0.2-1.0)
[2017-05-03 08:40] LABS: BACTERIA TRACE; EPITHELIAL CELLS 0-2; RBC 0-2 rbc/hpf (0-2); WBC 0-2 wbc/hpf (0-5)
[2017-05-03 12:00] VITALS: BP 158/76
[2017-05-03 16:00] VITALS: BP 113/61
[2017-05-03 19:58] VITALS: BP 101/61
[2017-05-04 00:15] VITALS: BP 109/69
[2017-05-04 07:25] LABS: BASO % 0.4 % (0.0-1.0); EOS # 0.4 10*3/uL (0.0-0.4); EOS % 7.2 % (1.0-4.0); HEMATOCRIT 31.3 % (42.0-52.0); HEMOGLOBIN 9.4 g/dl (14.0-18.0); LYMPH # 1.7 10*3/uL (1.3-4.4); MEAN CELL VOLUME 105.7 fl (80.0-94.0); MEAN CORPUSCULAR HGB 31.8 pg (27.0-31.0); MEAN PLATELET VOLUME 10.2 fl (9.6-12.3); MONO # 0.3 10*3/uL (0.1-1.0); MONO % 5.6 % (3.0-9.0); NEUT # 2.7 10*3/uL (2.3-7.9); NEUT % 53.6 % (47.0-73.0); PLATELET COUNT AUTOMATED 112 10*3/uL (130-400); RED BLOOD COUNT 2.96 10*6/uL (4.50-5.90); RED CELL DISTRI WIDTH 14.1 % (0-14.5)
[2017-05-04 07:54] LABS: CHLORIDE 113 mmol/L (98-107); POTASSIUM 4.6 mmol/L (3.5-5.1); SODIUM 143 mmol/L (136-145)
[2017-05-04 08:00] VITALS: BP 138/67
[2017-05-04 08:01] LABS: BUN 12 mg/dl (7-24); CREATININE 1.26 mg/dL (0.70-1.30)
[2017-05-04 12:00] VITALS: BP 117/66
[2017-05-04 16:00] VITALS: BP 120/68
[2017-05-04 20:00] VITALS: BP 106/69
[2017-05-05] VITALS: BP 119/72
[2017-05-05 06:03] LABS: BASO % 0.4 % (0.0-1.0); EOS # 0.3 10*3/uL (0.0-0.4); EOS % 6.1 % (1.0-4.0); HEMATOCRIT 31.3 % (42.0-52.0); HEMOGLOBIN 9.1 g/dl (14.0-18.0); LYMPH # 1.9 10*3/uL (1.3-4.4); LYMPH % 38.7 % (27.0-41.0); MEAN CELL VOLUME 106.8 fl (80.0-94.0); MEAN CORPUSCULAR HGB 31.1 pg (27.0-31.0); MEAN CORPUSCULAR HGB CONC 29.1 g/dl (33.0-37.0); MEAN PLATELET VOLUME 10.6 fl (9.6-12.3); MONO # 0.2 10*3/uL (0.1-1.0); MONO % 4.7 % (3.0-9.0); NEUT # 2.4 10*3/uL (2.3-7.9); NEUT % 49.9 % (47.0-73.0); PLATELET COUNT AUTOMATED 134 10*3/uL (130-400); RED BLOOD COUNT 2.93 10*6/uL (4.50-5.90); RED CELL DISTRI WIDTH 14.2 % (0-14.5); WHITE BLOOD COUNT 4.9 10*3/uL (4.8-10.8)
[2017-05-05 06:18] LABS: BUN 15 mg/dl (7-24); CHLORIDE 115 mmol/L (98-107); CREATININE 1.27 mg/dL (0.70-1.30); POTASSIUM 5.1 mmol/L (3.5-5.1); SODIUM 147 mmol/L (136-145)
[2017-05-05 08:00] VITALS: BP 143/77
== END 2017-05-05 09:58 | disposition home or self-care (01) | DRG 312 ==
LOC: ED 21:58 → 4E 23:23 → EDHOLD 23:23 → 4E 23:34
PROVIDERS: Internal Medicine; Student in an Organized Health Care Education/Training Program
DX: I95.1 Orthostatic hypotension (principal); E11.22 Type 2 diabetes mellitus with diabetic chronic kidney disease; E87.8 Other disorders of electrolyte and fluid balance, not elsewhere classified; E44.1 Mild protein-calorie malnutrition; N18.3 Chronic kidney disease, stage 3 (moderate); E86.0 Dehydration; F31.9 Bipolar disorder, unspecified; I25.10 Atherosclerotic heart disease of native coronary artery without angina pectoris; E78.5 Hyperlipidemia, unspecified; G20 Parkinson's disease; D53.9 Nutritional anemia, unspecified; I12.9 Hypertensive chronic kidney disease with stage 1 through stage 4 chronic kidney disease, or unspecified chronic kidney disease; Z79.84 Long term (current) use of oral hypoglycemic drugs; Z79.899 Other long term (current) drug therapy; Z68.25 Body mass index [BMI] 25.0-25.9, adult; Z79.82 Long term (current) use of aspirin; Z91.81 History of falling; Z82.49 Family history of ischemic heart disease and other diseases of the circulatory system; Z82.0 Family history of epilepsy and other diseases of the nervous system; Z87.891 Personal history of nicotine dependence; Z95.5 Presence of coronary angioplasty implant and graft

== ENCOUNTER 2017-05-08 17:48 | Inpatient (IN) | payer OTHER ==
[~2017-05-08] VITALS: Ht 167.6 cm; Wt 72.7 kg
[2017-05-08 17:48] VITALS: BP 122/74
[~2017-05-08 17:48] MED LIST changes: +ATORVASTATIN CA10 M1 PO; +ELIQUIS5 M1 PO; +LITHIUM CARBON150 MG PO; +PAROXETINE HCL20 MG PO
[2017-05-08 18:21] LABS: BASO % 0.5 % (0.0-1.0); EOS # 0.2 10*3/uL (0.0-0.4); EOS % 2.9 % (1.0-4.0); HEMATOCRIT 35.6 % (42.0-52.0); HEMOGLOBIN 10.8 g/dl (14.0-18.0); LYMPH # 1.1 10*3/uL (1.3-4.4); LYMPH % 18.8 % (27.0-41.0); MEAN CELL VOLUME 102.9 fl (80.0-94.0); MEAN CORPUSCULAR HGB 31.2 pg (27.0-31.0); MEAN CORPUSCULAR HGB CONC 30.3 g/dl (33.0-37.0); MEAN PLATELET VOLUME 9.6 fl (9.6-12.3); MONO # 0.3 10*3/uL (0.1-1.0); MONO % 4.3 % (3.0-9.0); NEUT # 4.3 10*3/uL (2.3-7.9); NEUT % 73.3 % (47.0-73.0); PLATELET COUNT AUTOMATED 177 10*3/uL (130-400); RED BLOOD COUNT 3.46 10*6/uL (4.50-5.90); WHITE BLOOD COUNT 5.8 10*3/uL (4.8-10.8)
[2017-05-08 18:58] LABS: ALBUMIN 3.3 gm/dl (3.1-4.5); ALKALINE PHOSPHATASE 132 U/L (45-117); BUN 9 mg/dl (7-24); CHLORIDE 109 mmol/L (98-107); CREATININE 1.42 mg/dL (0.70-1.30); POTASSIUM 5.1 mmol/L (3.5-5.1); SGOT/AST 32 IU/L (3-35); SGPT/ALT 16 U/L (12-78); SODIUM 143 mmol/L (136-145); TOTAL PROTEIN 6.7 gm/dL (6.4-8.2)
[2017-05-08 18:59] LABS: TROPONIN I < 0.015 ng/ml (<0.045)
[2017-05-08 19:25] VITALS: BP 118/68
[2017-05-08 20:00] VITALS: BP 96/55
[2017-05-09] VITALS: BP 127/68
[2017-05-09 07:12] LABS: BASO % 0.6 % (0.0-1.0); EOS # 0.3 10*3/uL (0.0-0.4); EOS % 4.9 % (1.0-4.0); HEMOGLOBIN 9.9 g/dl (14.0-18.0); LYMPH # 1.9 10*3/uL (1.3-4.4); LYMPH % 35.3 % (27.0-41.0); MEAN CELL VOLUME 104.1 fl (80.0-94.0); MEAN CORPUSCULAR HGB 31.2 pg (27.0-31.0); MEAN PLATELET VOLUME 9.8 fl (9.6-12.3); MONO # 0.3 10*3/uL (0.1-1.0); MONO % 5.5 % (3.0-9.0); NEUT # 2.8 10*3/uL (2.3-7.9); NEUT % 53.5 % (47.0-73.0); PLATELET COUNT AUTOMATED 158 10*3/uL (130-400); RED BLOOD COUNT 3.17 10*6/uL (4.50-5.90); RED CELL DISTRI WIDTH 14.1 % (0-14.5); WHITE BLOOD COUNT 5.3 10*3/uL (4.8-10.8)
[2017-05-09 07:31] LABS: CHLORIDE 109 mmol/L (98-107); POTASSIUM 4.6 mmol/L (3.5-5.1); SODIUM 143 mmol/L (136-145)
[2017-05-09 07:44] LABS: ACT PARTIAL THROMBO TIME 27.2 SECONDS (20.8-31.5); BUN 11 mg/dl (7-24)
[2017-05-09 08:00] VITALS: BP 146/68
[2017-05-09 12:00] VITALS: BP 134/68
[2017-05-09 16:00] VITALS: BP 130/78
[2017-05-09 20:00] VITALS: BP 148/79
[2017-05-10] VITALS: BP 144/80
[2017-05-10 08:00] VITALS: BP 133/75
[2017-05-10 12:00] VITALS: BP 114/66
[2017-05-10 16:00] VITALS: BP 102/59
[2017-05-10 20:00] VITALS: BP 108/59
[2017-05-11] VITALS: BP 119/82
[2017-05-11 08:00] VITALS: BP 144/70
[2017-05-11 12:00] VITALS: BP 122/60
[2017-05-11 16:00] VITALS: BP 140/74
[2017-05-11 20:00] VITALS: BP 133/69
[2017-05-12] VITALS: BP 158/85
[2017-05-12 08:00] VITALS: BP 100/48
[2017-05-12 12:00] VITALS: BP 112/48
[2017-05-12 16:00] VITALS: BP 100/50
[2017-05-12 20:11] VITALS: BP 126/60
[2017-05-13 00:29] VITALS: BP 143/74
[2017-05-13 07:11] LABS: BASO % 0.6 % (0.0-1.0); EOS # 0.3 10*3/uL (0.0-0.4); EOS % 5.6 % (1.0-4.0); HEMATOCRIT 29.4 % (42.0-52.0); LYMPH % 42.4 % (27.0-41.0); MEAN CELL VOLUME 104.3 fl (80.0-94.0); MEAN CORPUSCULAR HGB 31.9 pg (27.0-31.0); MEAN CORPUSCULAR HGB CONC 30.6 g/dl (33.0-37.0); MEAN PLATELET VOLUME 9.7 fl (9.6-12.3); MONO # 0.3 10*3/uL (0.1-1.0); MONO % 7.1 % (3.0-9.0); NEUT # 2.1 10*3/uL (2.3-7.9); NEUT % 44.1 % (47.0-73.0); PLATELET COUNT AUTOMATED 144 10*3/uL (130-400); RED BLOOD COUNT 2.82 10*6/uL (4.50-5.90); RED CELL DISTRI WIDTH 14.5 % (0-14.5); WHITE BLOOD COUNT 4.8 10*3/uL (4.8-10.8)
[2017-05-13 07:33] LABS: ALBUMIN 2.7 gm/dl (3.1-4.5); ALKALINE PHOSPHATASE 95 U/L (45-117); BUN 11 mg/dl (7-24); CHLORIDE 112 mmol/L (98-107); CREATININE 1.08 mg/dL (0.70-1.30); POTASSIUM 3.9 mmol/L (3.5-5.1); SGOT/AST 8 IU/L (3-35); SGPT/ALT 9 U/L (12-78); SODIUM 145 mmol/L (136-145); TOTAL PROTEIN 5.8 gm/dL (6.4-8.2)
[2017-05-13 08:00] VITALS: BP 148/78
[2017-05-13] MEDS ORDERED: MIDODRINE HCL5 M1 PO (11:32)
[2017-05-13] MEDS ORDERED: FLUDROCORTISON0.1 MG PO (11:32)
[2017-05-13] MEDS ORDERED: OMEPRAZOLE D/R20 MG PO (11:32)
[2017-05-13] MEDS ORDERED: HYDROCODONE-AC1 EAC1 PO (11:34)
[2017-05-13 12:00] VITALS: BP 142/70
== END 2017-05-13 15:15 | disposition other institution (70) | DRG 184 ==
LOC: ED 17:48 → EDHOLD 18:38 → 4E 18:38 → 5E 19:05 → 4E 19:05
PROVIDERS: Emergency Medicine; Internal Medicine
DX: S22.41XA Multiple fractures of ribs, right side, initial encounter for closed fracture (principal); E44.1 Mild protein-calorie malnutrition; E11.22 Type 2 diabetes mellitus with diabetic chronic kidney disease; G20 Parkinson's disease; F31.31 Bipolar disorder, current episode depressed, mild; I95.1 Orthostatic hypotension; N18.3 Chronic kidney disease, stage 3 (moderate); D53.9 Nutritional anemia, unspecified; R29.6 Repeated falls; G25.0 Essential tremor; N40.0 Benign prostatic hyperplasia without lower urinary tract symptoms; I25.10 Atherosclerotic heart disease of native coronary artery without angina pectoris; E78.5 Hyperlipidemia, unspecified; K57.90 Diverticulosis of intestine, part unspecified, without perforation or abscess without bleeding; W18.39XA Other fall on same level, initial encounter; I12.9 Hypertensive chronic kidney disease with stage 1 through stage 4 chronic kidney disease, or unspecified chronic kidney disease; K22.70 Barrett's esophagus without dysplasia; E53.8 Deficiency of other specified B group vitamins; Z68.25 Body mass index [BMI] 25.0-25.9, adult; Z87.891 Personal history of nicotine dependence; Y93.89 Activity, other specified; Y92.89 Other specified places as the place of occurrence of the external cause; Y99.8 Other external cause status; Z79.899 Other long term (current) drug therapy; Z86.711 Personal history of pulmonary embolism; Z90.89 Acquired absence of other organs; Z98.61 Coronary angioplasty status; Z82.49 Family history of ischemic heart disease and other diseases of the circulatory system; Z83.3 Family history of diabetes mellitus; Z80.8 Family history of malignant neoplasm of other organs or systems; Z82.0 Family history of epilepsy and other diseases of the nervous system; Z79.82 Long term (current) use of aspirin; Z87.898 Personal history of other specified conditions; I25.2 Old myocardial infarction

== ENCOUNTER 2017-06-07 17:01 | Inpatient (IN) | payer OTHER ==
[~2017-06-07] VITALS: Ht 167.6 cm; Wt 71.5 kg
[2017-06-07] VITALS (8 sets, daily range): BP systolic 115–145; BP diastolic 54–73
--- NOTE | ~2017-06-07 | CON ---
[place], [place] REPORT OF CONSULTATION NAME: BETZAIDA MANN [facility] [id number] UNIT #: [id number] ROOM: 508 DOCTOR: KHUSHI FAN MD BIRTHDATE: [birth year] DOS: 06/08/2017 HISTORY OF PRESENT ILLNESS: The patient is a 66-year-old gentleman apparently admitted with a syncopal episode. Apparently, he fell 7 times within the past 3 days. The patient fell. He states that for the most part, he did not recall falling. The patient has been having significant hypotensive episodes of orthostatic and dysautonomia. He was supposed to start ProAmatine and Florinef, but unfortunately had not started it and he got admitted again. His pressure was significantly orthostatic in the Emergency Room. The patient had a recent echocardiogram that showed an excellent ejection fraction. He was evaluated by a sr. vendor management associate, who has stopped this alpha-blockers and started him on midodrine and Florinef. Apparently, the patient had not started that. His ejection fraction as mentioned very well preserved. He does have a history of Parkinson's disease and has a brain stimulator. He did have a CT scan showed minimal displaced nasal bone fractures. His EKG shows sinus rhythm, heart rate of 56 with T-wave inversions in the inferior leads with right bundle branch block, which is unchanged from before. PAST MEDICAL HISTORY: Bipolar disorder, diverticulitis, frequent falls, orthostatic hypotension, Parkinson's disease, and syncope. PAST SURGICAL HISTORY: Tonsillectomy, appendectomy, deep brain stimulator placement, and history of coronary artery disease, stent placement. SOCIAL HISTORY: Consumes alcohol occasionally. Quit smoking. History of cocaine abuse, quit in 2007. FAMILY HISTORY: Positive for coronary artery disease. MEDICATIONS: He is on carbidopa and levodopa, gabapentin, levothyroxine, melatonin, and metformin. He was supposed to be on midodrine, which he has not started. REVIEW OF SYSTEMS: CONSTITUTIONAL: No fever. No chills. HEENT: Denies any visual disturbances or hearing problems. CARDIOVASCULAR: No chest discomfort. GASTROINTESTINAL: No nausea. No vomiting. GENITOURINARY: No dysuria. NEUROLOGIC: Appears to be stable. PHYSICAL EXAMINATION: VITAL SIGNS: Blood pressure is 129/61, the patient is significantly orthostatic. HEENT: Unremarkable. NECK: Supple. No JVD. LUNGS: Clear. HEART: Regular. No murmur. No rub. Carotids without any bruit. EXTREMITIES: Intact pulses. NEUROLOGICAL: Alert and oriented x 3. Cranial nerves are intact. [place], [place] REPORT OF CONSULTATION NAME: BETZAIDA MANN UNIT #: [id number] ROOM: 508 DOCTOR: KHUSHI FAN MD BIRTHDATE: [birth year] LABORATORY DATA: Sodium 141, potassium 4.8, and BUN and creatinine is slightly elevated to 1.5. Hemoglobin 11.8 and hematocrit 38.7. EKG shows sinus rhythm with right bundle branch block with sinus bradycardia, nonspecific ST-T changes. CT of the head, bilateral deep brain stimulator electrodes, no acute intracranial bleed. IMPRESSION: 1. Significant orthostatic hypotension with syncope. 2. History of coronary artery disease. 3. Acute renal failure, probable dehydration. RECOMMENDATIONS: Agree with the present management. Recent echo showed an excellent ejection fraction. Aggressive hydration. Start the patient on ProAmatine and use ЮЛИЯ hose stockings. Monitor the heart rate and blood pressure very closely. We will consider to do a stress test as an outpatient at a later date if it is not done recently. We will try to get a report from his sr. vendor management associate. If he continues to be symptomatic, a till table will be arranged as an outpatient. KHUSHI FAN MD CM:CONSTR:REPORT OF CONSULTATION 0720 06/08/17 0743 interface
[~2017-06-07 17:01] MED LIST changes: +FLUDROCORTISON0.1 MG PO; +HYDROCODONE-AC1 EAC1 PO; +MIDODRINE HCL5 M1 PO; +OMEPRAZOLE D/R20 MG PO
[2017-06-07 18:18] LABS: BASO % 0.7 % (0.0-1.0); EOS # 0.4 10*3/uL (0.0-0.4); EOS % 6.9 % (1.0-4.0); HEMATOCRIT 38.7 % (42.0-52.0); HEMOGLOBIN 11.8 g/dl (14.0-18.0); LYMPH # 1.8 10*3/uL (1.3-4.4); MEAN CELL VOLUME 102.4 fl (80.0-94.0); MEAN CORPUSCULAR HGB 31.2 pg (27.0-31.0); MEAN CORPUSCULAR HGB CONC 30.5 g/dl (33.0-37.0); MEAN PLATELET VOLUME 9.7 fl (9.6-12.3); MONO # 0.4 10*3/uL (0.1-1.0); MONO % 5.7 % (3.0-9.0); NEUT # 3.5 10*3/uL (2.3-7.9); NEUT % 56.4 % (47.0-73.0); PLATELET COUNT AUTOMATED 143 10*3/uL (130-400); RED BLOOD COUNT 3.78 10*6/uL (4.50-5.90); RED CELL DISTRI WIDTH 13.6 % (0-14.5); WHITE BLOOD COUNT 6.1 10*3/uL (4.8-10.8)
[2017-06-07 18:26] LABS: ACT PARTIAL THROMBO TIME 24.3 SECONDS (20.8-31.5)
[2017-06-07 18:32] LABS: ALBUMIN 3.7 gm/dl (3.1-4.5); ALKALINE PHOSPHATASE 138 U/L (45-117); BUN 16 mg/dl (7-24); CHLORIDE 105 mmol/L (98-107); CREATININE 1.51 mg/dL (0.70-1.30); POTASSIUM 4.2 mmol/L (3.5-5.1); SGOT/AST 9 IU/L (3-35); SGPT/ALT 8 U/L (12-78); SODIUM 141 mmol/L (136-145); TOTAL PROTEIN 7.1 gm/dL (6.4-8.2)
[2017-06-07 18:33] LABS: TROPONIN I < 0.015 ng/ml (<0.045)
[2017-06-07 19:07] LABS: BILIRUBIN NEGATIVE (NEGATIVE); BLOOD NEGATIVE (NEGATIVE); CLARITY SL CLOUDY (CLEAR); COLOR YELLOW (YELLOW); GLUCOSE NEGATIVE (NEGATIVE); KETONE TRACE (NEGATIVE); LEUKO ESTERASE NEGATIVE (NEGATIVE); NITRITE NEGATIVE (NEGATIVE); PH 5.5 (5.0-9.0); SPECIFIC GRAVITY 1.025 (1.005-1.030); UROBILINOGEN 0.2 E.U./dl (0.2-1.0)
[2017-06-07 19:18] LABS: BACTERIA TRACE; HYALINE CAST 31-40
[2017-06-07 19:19] LABS: EPITHELIAL CELLS 0-2
[2017-06-08] VITALS: BP 99/54
[2017-06-08 04:00] VITALS: BP 120/73
[2017-06-08 06:48] LABS: BASO % 0.8 % (0.0-1.0); EOS # 0.4 10*3/uL (0.0-0.4); EOS % 7.2 % (1.0-4.0); HEMATOCRIT 33.4 % (42.0-52.0); HEMOGLOBIN 10.4 g/dl (14.0-18.0); LYMPH # 2.3 10*3/uL (1.3-4.4); MEAN CELL VOLUME 103.1 fl (80.0-94.0); MEAN CORPUSCULAR HGB 32.1 pg (27.0-31.0); MEAN CORPUSCULAR HGB CONC 31.1 g/dl (33.0-37.0); MEAN PLATELET VOLUME 10.2 fl (9.6-12.3); MONO # 0.4 10*3/uL (0.1-1.0); MONO % 6.6 % (3.0-9.0); NEUT # 2.2 10*3/uL (2.3-7.9); NEUT % 42.2 % (47.0-73.0); PLATELET COUNT AUTOMATED 134 10*3/uL (130-400); RED BLOOD COUNT 3.24 10*6/uL (4.50-5.90); RED CELL DISTRI WIDTH 13.5 % (0-14.5); WHITE BLOOD COUNT 5.3 10*3/uL (4.8-10.8)
[2017-06-08 07:00] LABS: ALBUMIN 3.1 gm/dl (3.1-4.5); ALKALINE PHOSPHATASE 123 U/L (45-117); BUN 15 mg/dl (7-24); CHLORIDE 109 mmol/L (98-107); CREATININE 1.31 mg/dL (0.70-1.30); PHOSPHOROUS 3.1 mg/dL (2.5-4.9); POTASSIUM 4.1 mmol/L (3.5-5.1); SGOT/AST 8 IU/L (3-35); SGPT/ALT 10 U/L (12-78); SODIUM 144 mmol/L (136-145)
[2017-06-08 08:00] VITALS: BP 144/68
[2017-06-08 12:00] VITALS: BP 127/72
[2017-06-08 16:00] VITALS: BP 132/62
[2017-06-08 20:00] VITALS: BP 124/59
[2017-06-09] VITALS: BP 136/63
[2017-06-09 06:56] LABS: BASO % 0.4 % (0.0-1.0); EOS # 0.4 10*3/uL (0.0-0.4); EOS % 6.7 % (1.0-4.0); HEMATOCRIT 32.1 % (42.0-52.0); HEMOGLOBIN 9.6 g/dl (14.0-18.0); LYMPH # 2.4 10*3/uL (1.3-4.4); LYMPH % 44.4 % (27.0-41.0); MEAN CELL VOLUME 103.2 fl (80.0-94.0); MEAN CORPUSCULAR HGB 30.9 pg (27.0-31.0); MEAN CORPUSCULAR HGB CONC 29.9 g/dl (33.0-37.0); MEAN PLATELET VOLUME 9.8 fl (9.6-12.3); MONO # 0.4 10*3/uL (0.1-1.0); MONO % 6.9 % (3.0-9.0); NEUT # 2.2 10*3/uL (2.3-7.9); NEUT % 41.4 % (47.0-73.0); PLATELET COUNT AUTOMATED 113 10*3/uL (130-400); RED BLOOD COUNT 3.11 10*6/uL (4.50-5.90); RED CELL DISTRI WIDTH 13.9 % (0-14.5); WHITE BLOOD COUNT 5.4 10*3/uL (4.8-10.8)
[2017-06-09 07:08] LABS: BUN 13 mg/dl (7-24); CHLORIDE 111 mmol/L (98-107); CREATININE 1.22 mg/dL (0.70-1.30); IRON 43 ug/dL (65-175); POTASSIUM 4.2 mmol/L (3.5-5.1); SODIUM 144 mmol/L (136-145); TOTAL IRON BINDING CAPACITY 245 ug/dl (250-450)
[2017-06-09 08:00] VITALS: BP 157/53
[2017-06-09] MEDS ORDERED: AVODART0.5 M1 PO (10:13)
[2017-06-09] MEDS ORDERED: MIDODRINE HCL5 M1 PO (10:13)
[2017-06-09] MEDS ORDERED: FLUDROCORTISON0.1 MG PO (10:14)
== END 2017-06-09 11:04 | disposition home or self-care (01) | DRG 154 ==
LOC: ED 17:01 → EDHOLD 19:04 → 5E 19:04
PROVIDERS: Hospitalist; Internal Medicine; Physician Assistant
DX: S02.2XXA Fracture of nasal bones, initial encounter for closed fracture (principal); N17.0 Acute kidney failure with tubular necrosis; F31.31 Bipolar disorder, current episode depressed, mild; I95.1 Orthostatic hypotension; R29.6 Repeated falls; I25.10 Atherosclerotic heart disease of native coronary artery without angina pectoris; N18.3 Chronic kidney disease, stage 3 (moderate); K57.90 Diverticulosis of intestine, part unspecified, without perforation or abscess without bleeding; E11.22 Type 2 diabetes mellitus with diabetic chronic kidney disease; I12.9 Hypertensive chronic kidney disease with stage 1 through stage 4 chronic kidney disease, or unspecified chronic kidney disease; E11.65 Type 2 diabetes mellitus with hyperglycemia; D53.9 Nutritional anemia, unspecified; G20 Parkinson's disease; N40.0 Benign prostatic hyperplasia without lower urinary tract symptoms; K22.719 Barrett's esophagus with dysplasia, unspecified; G25.0 Essential tremor; M54.12 Radiculopathy, cervical region; E53.8 Deficiency of other specified B group vitamins; I45.10 Unspecified right bundle-branch block; Z79.1 Long term (current) use of non-steroidal anti-inflammatories (NSAID); Z79.899 Other long term (current) drug therapy; Z95.5 Presence of coronary angioplasty implant and graft; Z98.2 Presence of cerebrospinal fluid drainage device; Z79.84 Long term (current) use of oral hypoglycemic drugs; Z87.891 Personal history of nicotine dependence; Z82.49 Family history of ischemic heart disease and other diseases of the circulatory system

== ENCOUNTER 2017-06-19 21:02 | Emergency (ER) | payer OTHER ==
[~2017-06-19] VITALS: Ht 167.6 cm; Wt 68.0 kg
[2017-06-19] MEDS ORDERED: NAPROSYN500 MG PO (22:01)
== END 2017-06-19 22:05 | disposition home or self-care (01) ==
LOC: ED 21:02
DX: S62.626A Displaced fracture of middle phalanx of right little finger, initial encounter for closed fracture (principal); N40.0 Benign prostatic hyperplasia without lower urinary tract symptoms; I25.10 Atherosclerotic heart disease of native coronary artery without angina pectoris; I12.9 Hypertensive chronic kidney disease with stage 1 through stage 4 chronic kidney disease, or unspecified chronic kidney disease; E11.22 Type 2 diabetes mellitus with diabetic chronic kidney disease; N18.3 Chronic kidney disease, stage 3 (moderate); E78.5 Hyperlipidemia, unspecified; Z79.82 Long term (current) use of aspirin; Z79.899 Other long term (current) drug therapy; W19.XXXA Unspecified fall, initial encounter; Y93.89 Activity, other specified; Y92.89 Other specified places as the place of occurrence of the external cause; Y99.8 Other external cause status

== ENCOUNTER → 2017-08-01 | Outpatient (CLI) | payer OTHER ==
[~2017-08-01] MED LIST changes: +NAPROSYN500 MG PO
== END | disposition home or self-care (01) ==
LOC: LAB 13:40
DX: F31.81 Bipolar II disorder (principal)

== ENCOUNTER 2017-08-12 15:43 | Emergency (ER) | payer OTHER ==
[~2017-08-12] VITALS: Wt 68.0 kg
[2017-08-12] MEDS ORDERED: TRAMADOL HCL50 MG PO (19:16)
[2017-08-12] MEDS ORDERED: ZITHROMAX250 MG PO (19:17)
== END 2017-08-12 19:25 | disposition home or self-care (01) ==
LOC: ED 15:43
DX: S22.41XA Multiple fractures of ribs, right side, initial encounter for closed fracture (principal); I25.10 Atherosclerotic heart disease of native coronary artery without angina pectoris; I12.9 Hypertensive chronic kidney disease with stage 1 through stage 4 chronic kidney disease, or unspecified chronic kidney disease; E11.22 Type 2 diabetes mellitus with diabetic chronic kidney disease; N18.3 Chronic kidney disease, stage 3 (moderate); E78.5 Hyperlipidemia, unspecified; Z79.899 Other long term (current) drug therapy; Z86.711 Personal history of pulmonary embolism; Z87.891 Personal history of nicotine dependence; Z90.89 Acquired absence of other organs; Z95.5 Presence of coronary angioplasty implant and graft; Z98.890 Other specified postprocedural states; Z79.82 Long term (current) use of aspirin; W19.XXXA Unspecified fall, initial encounter; Y93.89 Activity, other specified; Y92.89 Other specified places as the place of occurrence of the external cause; Y99.9 Unspecified external cause status

== ENCOUNTER 2017-08-31 20:20 | Emergency (ER) | payer OTHER ==
[~2017-08-31] VITALS: Ht 167.6 cm; Wt 70.8 kg
[~2017-08-31 20:20] MED LIST changes: +ZITHROMAX250 MG PO
[2017-08-31] MEDS ORDERED: KEFLEX500 M1 PO (22:28)
== END 2017-08-31 23:51 | disposition home or self-care (01) ==
LOC: ED 20:20
DX: S51.012A Laceration without foreign body of left elbow, initial encounter (principal); F11.10 Opioid abuse, uncomplicated; I12.9 Hypertensive chronic kidney disease with stage 1 through stage 4 chronic kidney disease, or unspecified chronic kidney disease; E11.22 Type 2 diabetes mellitus with diabetic chronic kidney disease; N18.3 Chronic kidney disease, stage 3 (moderate); E78.5 Hyperlipidemia, unspecified; I25.10 Atherosclerotic heart disease of native coronary artery without angina pectoris; Z90.89 Acquired absence of other organs; Z98.890 Other specified postprocedural states; Z95.5 Presence of coronary angioplasty implant and graft; Z79.82 Long term (current) use of aspirin; Z79.899 Other long term (current) drug therapy; Z87.891 Personal history of nicotine dependence; W19.XXXA Unspecified fall, initial encounter; Y93.01 Activity, walking, marching and hiking; Y92.099 Unspecified place in other non-institutional residence as the place of occurrence of the external cause; Y99.9 Unspecified external cause status

== ENCOUNTER 2017-09-09 19:51 | Emergency (ER) | payer OTHER ==
[~2017-09-09] VITALS: Ht 167.6 cm; Wt 68.0 kg
[2017-09-09 20:27] LABS: BASO % 0.5 % (0.0-1.0); EOS # 0.4 10*3/uL (0.0-0.4); EOS % 6.2 % (1.0-4.0); HEMOGLOBIN 10.5 g/dl (14.0-18.0); LYMPH # 2.1 10*3/uL (1.3-4.4); LYMPH % 35.8 % (27.0-41.0); MEAN CELL VOLUME 106.4 fl (80.0-94.0); MEAN CORPUSCULAR HGB 31.9 pg (27.0-31.0); MEAN PLATELET VOLUME 9.8 fl (9.6-12.3); MONO # 0.3 10*3/uL (0.1-1.0); MONO % 5.7 % (3.0-9.0); NEUT # 3.1 10*3/uL (2.3-7.9); NEUT % 51.6 % (47.0-73.0); PLATELET COUNT AUTOMATED 142 10*3/uL (130-400); RED BLOOD COUNT 3.29 10*6/uL (4.50-5.90); RED CELL DISTRI WIDTH 13.4 % (0-14.5)
[2017-09-09 20:38] LABS: CREATININE 1.68 mg/dL (0.70-1.30); POTASSIUM 4.2 mmol/L (3.5-5.1)
[2017-09-09] MEDS ORDERED: SEPTDS PO (21:47)
== END 2017-09-09 21:56 | disposition home or self-care (01) ==
LOC: ED 19:51
PROVIDERS: Emergency Medicine
DX: S41.112D Laceration without foreign body of left upper arm, subsequent encounter (principal); G20 Parkinson's disease; N40.0 Benign prostatic hyperplasia without lower urinary tract symptoms; I25.10 Atherosclerotic heart disease of native coronary artery without angina pectoris; E78.5 Hyperlipidemia, unspecified; I12.9 Hypertensive chronic kidney disease with stage 1 through stage 4 chronic kidney disease, or unspecified chronic kidney disease; E11.22 Type 2 diabetes mellitus with diabetic chronic kidney disease; N18.3 Chronic kidney disease, stage 3 (moderate); F31.9 Bipolar disorder, unspecified; Z79.82 Long term (current) use of aspirin; Z79.899 Other long term (current) drug therapy; X58.XXXD Exposure to other specified factors, subsequent encounter

== ENCOUNTER → 2017-11-30 | Outpatient (CLI) | payer OTHER ==
[~2017-11-30] MED LIST changes: +SEPTDS PO; +VITAMIN D-32000 UNIT PO; -VITAMIN D5000 I3 PO; +WELLBUTRIN SR150 MG PO
== END | disposition home or self-care (01) ==
LOC: ORTHO 01:45 → CARD 01:45
DX: I95.89 Other hypotension (principal); D63.1 Anemia in chronic kidney disease; N18.3 Chronic kidney disease, stage 3 (moderate); E55.9 Vitamin D deficiency, unspecified; E87.0 Hyperosmolality and hypernatremia

== ENCOUNTER → 2017-11-30 | Outpatient (CLI) | payer OTHER | END | disposition home or self-care (01) | LOC: CANPRECLI → ORTHO 01:54 | DX: M75.91 Shoulder lesion, unspecified, right shoulder (principal) ==

== ENCOUNTER → 2017-12-05 | Outpatient (CLI) | payer OTHER ==
[2017-12-05 12:16] LABS: BASO % 0.4 % (0.0-1.0); EOS # 0.1 10*3/uL (0.0-0.4); EOS % 1.1 % (1.0-4.0); HEMATOCRIT 42.3 % (42.0-52.0); HEMOGLOBIN 12.9 g/dl (14.0-18.0); LYMPH % 28.1 % (27.0-41.0); MEAN CELL VOLUME 105.2 fl (80.0-94.0); MEAN CORPUSCULAR HGB 32.1 pg (27.0-31.0); MEAN CORPUSCULAR HGB CONC 30.5 g/dl (33.0-37.0); MEAN PLATELET VOLUME 9.9 fl (9.6-12.3); MONO # 0.4 10*3/uL (0.1-1.0); MONO % 5.8 % (3.0-9.0); NEUT # 4.6 10*3/uL (2.3-7.9); NEUT % 63.9 % (47.0-73.0); PLATELET COUNT AUTOMATED 202 10*3/uL (130-400); RED BLOOD COUNT 4.02 10*6/uL (4.50-5.90); RED CELL DISTRI WIDTH 12.9 % (0-14.5); RETICULOCYTE % 2.28 % (0.50-2.50); WHITE BLOOD COUNT 7.2 10*3/uL (4.8-10.8)
[2017-12-05 12:28] LABS: BILIRUBIN NEGATIVE (NEGATIVE); BLOOD NEGATIVE (NEGATIVE); CLARITY CLEAR (CLEAR); COLOR YELLOW (YELLOW); GLUCOSE NEGATIVE (NEGATIVE); KETONE NEGATIVE (NEGATIVE); LEUKO ESTERASE NEGATIVE (NEGATIVE); NITRITE NEGATIVE (NEGATIVE); PH 6.5 (5.0-9.0); SPECIFIC GRAVITY <= 1.005 (1.005-1.030); UROBILINOGEN 0.2 E.U./dl (0.2-1.0)
[2017-12-05 12:41] LABS: URINE CREATININE RANDOM 79.9 mg/dL
[2017-12-05 12:46] LABS: ALBUMIN 3.9 gm/dl (3.1-4.5); CREATININE 1.45 mg/dL (0.70-1.30); POTASSIUM 4.9 mmol/L (3.5-5.1)
[2017-12-05 12:50] LABS: PHOSPHOROUS 3.1 mg/dL (2.5-4.9); TOTAL PROTEIN 7.5 gm/dL (6.4-8.2)
[2017-12-05 13:07] LABS: EPITHELIAL CELLS 0-2; RBC 0-2 rbc/hpf (0-2); WBC 0-2 wbc/hpf (0-5)
[2017-12-05 14:06] LABS: FERRITIN 28.5 ng/mL (22.0-322.0); PTH INTACT 121.3 pg/mL (18.5-88.0)
== END | disposition home or self-care (01) ==
LOC: LAB 10:57
PROVIDERS: Internal Medicine Nephrology
DX: I95.89 Other hypotension (principal); N18.3 Chronic kidney disease, stage 3 (moderate); E55.9 Vitamin D deficiency, unspecified; E87.0 Hyperosmolality and hypernatremia; D64.9 Anemia, unspecified; Z79.899 Other long term (current) drug therapy

== ENCOUNTER 2018-03-29 12:12 | Emergency (ER) | payer OTHER ==
[~2018-03-29] VITALS: Ht 167.6 cm; Wt 79.4 kg
--- NOTE | ~2018-03-29 | EKG ---
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
[2018-03-29 15:12] LABS: BASO % 0.4 % (0.0-1.0); EOS # 0.3 10*3/uL (0.0-0.4); EOS % 4.1 % (1.0-4.0); HEMATOCRIT 36.4 % (42.0-52.0); HEMOGLOBIN 11.2 g/dl (14.0-18.0); LYMPH # 1.9 10*3/uL (1.3-4.4); LYMPH % 27.7 % (27.0-41.0); MEAN CELL VOLUME 107.4 fl (80.0-94.0); MEAN CORPUSCULAR HGB CONC 30.8 g/dl (33.0-37.0); MEAN PLATELET VOLUME 9.6 fl (9.6-12.3); MONO # 0.5 10*3/uL (0.1-1.0); MONO % 6.6 % (3.0-9.0); NEUT # 4.2 10*3/uL (2.3-7.9); NEUT % 60.6 % (47.0-73.0); PLATELET COUNT AUTOMATED 199 10*3/uL (130-400); RED BLOOD COUNT 3.39 10*6/uL (4.50-5.90); RED CELL DISTRI WIDTH 14.1 % (0-14.5); WHITE BLOOD COUNT 6.9 10*3/uL (4.8-10.8)
[2018-03-29 15:31] LABS: ALBUMIN 3.1 gm/dl (3.1-4.5); ALKALINE PHOSPHATASE 120 U/L (45-117); BUN 17 mg/dl (7-24); CHLORIDE 108 mmol/L (98-107); CREATININE 1.58 mg/dL (0.70-1.30); POTASSIUM 4.5 mmol/L (3.5-5.1); SGOT/AST 11 IU/L (3-35); SGPT/ALT 8 U/L (12-78); SODIUM 142 mmol/L (136-145); TOTAL PROTEIN 6.8 gm/dL (6.4-8.2)
[2018-03-29 15:32] LABS: ETHYL ALCOHOL < 3.0 mg/dl (<3); TROPONIN I < 0.015 ng/ml (<0.045)
[2018-03-29 16:43] LABS: BILIRUBIN NEGATIVE (NEGATIVE); BLOOD NEGATIVE (NEGATIVE); CLARITY CLEAR (CLEAR); COLOR YELLOW (YELLOW); GLUCOSE NEGATIVE (NEGATIVE); KETONE NEGATIVE (NEGATIVE); LEUKO ESTERASE NEGATIVE (NEGATIVE); NITRITE NEGATIVE (NEGATIVE); PH 7.5 (5.0-9.0); UROBILINOGEN 0.2 E.U./dl (0.2-1.0)
[2018-03-29 16:51] LABS: URINE AMPHETAMINES < 1000 (1000ng/ml); URINE BARBITURATES < 200 (200ng/ml); URINE BENZODIAZEPINES > 200 (200ng/ml); URINE CANNABINOIDS (THC) < 50 (50ng/ml); URINE COCAINE < 300 (300ng/ml); URINE METHADONE < 300 (300ng/ml); URINE OPIATES < 300 (300ng/ml)
[2018-03-29 16:52] LABS: URINE PHENCYCLIDINE < 25 (25ng/ml)
[2018-05-23] MEDS ORDERED: SINEMET CR 50-1 EACH PO (14:09)
[2018-05-23] MEDS ORDERED: SINEMET 25-1001 EACH PO (15:25)
[2018-05-23] MEDS ORDERED: FOLIC ACID0.8 M1 PO (15:31)
[2018-05-23] MEDS ORDERED: XARELTO10 MG PO (15:32)
[2018-05-23] MEDS ORDERED: VITAMIN D5000 UNIT PO (15:32)
[2018-05-23] MEDS ORDERED: VITAMIN B-1100 M1 PO (15:33)
[2018-05-23] MEDS ORDERED: AMANTADINE HCL100 M1 PO (15:33)
== END 2018-03-29 15:38 | disposition short-term general hospital (02) ==
LOC: ED 12:12
PROVIDERS: Physician Assistant
DX: S02.31XA Fracture of orbital floor, right side, initial encounter for closed fracture (principal); S00.11XA Contusion of right eyelid and periocular area, initial encounter; G89.29 Other chronic pain; M25.511 Pain in right shoulder; R79.1 Abnormal coagulation profile; G20 Parkinson's disease; Z79.899 Other long term (current) drug therapy; Z79.82 Long term (current) use of aspirin; Z87.891 Personal history of nicotine dependence; W18.39XA Other fall on same level, initial encounter; Y93.89 Activity, other specified; Y92.89 Other specified places as the place of occurrence of the external cause; Y99.8 Other external cause status

== ENCOUNTER 2018-05-18 11:32 | Emergency (ER) | payer OTHER ==
[~2018-05-18] VITALS: Ht 167.6 cm; Wt 77.6 kg
--- NOTE | ~2018-05-18 | EKG ---
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
[~2018-05-18 11:32] MED LIST changes: +ASPIRIN ADULT L81 M1 PEG; -ASPIRIN ADULT L81 M1 PO; +ATORVASTATIN CA10 M1 PEG; -ATORVASTATIN CA10 M1 PO; -GABAPENTIN TAB600 MG PO; +GABAPENTIN800 MG PEG
[2018-05-18 12:58] LABS: HEMATOCRIT 35.7 % (42.0-52.0); MEAN CELL VOLUME 110.5 fl (80.0-94.0); MEAN CORPUSCULAR HGB 34.1 pg (27.0-31.0); MEAN CORPUSCULAR HGB CONC 30.8 g/dl (33.0-37.0); MEAN PLATELET VOLUME 9.4 fl (9.6-12.3); PLATELET COUNT AUTOMATED 189 10*3/uL (130-400); RED BLOOD COUNT 3.23 10*6/uL (4.50-5.90); RED CELL DISTRI WIDTH 14.9 % (0-14.5)
[2018-05-18 13:22] LABS: ATYPICAL LYMPHS 2 % (0-0); BASOPHILS 1 % (0-1); PLATELET SUFFICIENCY NORMAL (NORMAL); TOTAL CELLS COUNTED 100 #CELLS
[2018-05-18 13:23] LABS: ALBUMIN 3.2 gm/dl (3.1-4.5); CREATININE 1.85 mg/dL (0.70-1.30); POTASSIUM 4.4 mmol/L (3.5-5.1); TOTAL PROTEIN 6.8 gm/dL (6.4-8.2)
[2018-07-22] MEDS ORDERED: NORVASC5 MG PEG
[2018-07-22] MEDS ORDERED: LEVOTHYROXINE50 MCG JT (00:04)
[2018-07-22] MEDS ORDERED: MIRALAX17 GM PO (00:07)
[2018-07-22] MEDS ORDERED: TEARS NATURALE,15 ML OPH (00:08)
[2018-07-22] MEDS ORDERED: VALPROIC ACI50 MG/ML PO (00:11)
[2018-07-26] MEDS ORDERED: XANAX1 MG PO (18:43)
[2018-07-28] MEDS ORDERED: ONDANSETRON4 MG/5 M2 PEG (12:20)
[2018-07-28] MEDS ORDERED: PROTONIX40 M2 PEG (12:20)
[2018-08-08] MEDS ORDERED: COUMADIN5 M2 PEG (11:04)
[2018-08-21] MEDS ORDERED: TRANSDERM-SCOP1 EAC1 TD (23:10)
[2018-08-21] MEDS ORDERED: REGLAN5 MG PO (23:16)
== END 2018-05-18 14:52 | disposition home or self-care (01) ==
LOC: ED 11:32
PROVIDERS: Emergency Medicine
DX: R06.02 Shortness of breath (principal); R42 Dizziness and giddiness; R06.00 Dyspnea, unspecified; I12.9 Hypertensive chronic kidney disease with stage 1 through stage 4 chronic kidney disease, or unspecified chronic kidney disease; E11.22 Type 2 diabetes mellitus with diabetic chronic kidney disease; N18.3 Chronic kidney disease, stage 3 (moderate); E78.5 Hyperlipidemia, unspecified; I25.10 Atherosclerotic heart disease of native coronary artery without angina pectoris; Z79.899 Other long term (current) drug therapy; Z79.82 Long term (current) use of aspirin; Z79.4 Long term (current) use of insulin; Z87.891 Personal history of nicotine dependence

== ENCOUNTER 2018-05-23 11:44 | Inpatient (IN) | payer OTHER ==
[~2018-05-23] VITALS: Ht 167.6 cm; Wt 86.8 kg
--- NOTE | ~2018-05-23 | EKG ---
[place], [place] ELECTROCARDIOGRAM REPORT NAME: BETZAIDA MANN UNIT #: [id number] ROOM: 509 DOCTOR: VALENTINA DRAFT REPORT BIRTHDATE: [birth year] [facility] [place] Test Date: 2018-05-23 Test Time: 17:58:28 Pat Name: BETZAIDA MANN Department: Room: 509 Gender: M Scale Manager: Luanne Truong : 1950 Requested By: TIEN NUGENT Order Number: [id number] Reading MD: Nga Estes MD Measurements Intervals [place] Rate: 55 P: 38 SC: 159 QRS: 36 QRSD: 136 T: 0 QT: 447 QTc: 428 Interpretive Statements Sinus rhythm Right bundle branch block Compared to ECG 05/18/2018 12:39:26 No significant changes Electronically Signed On 05-26-2018 9:44:58 PST by Nga Estes MD CM:EKGRPT:ELECTROCARDIOGRAM REPORT [id number] TIEN COLE DRAFT REPORT TIEN NUGENT DO
--- NOTE | ~2018-05-23 | ST ---
[place], [place] EXERCISE STRESS TEST REPORT [id number] UNIT #: [id number] ROOM: 511 DOCTOR: MARIELLE ANDRADE MD BIRTHDATE: [birth year] DOS: The patient was subjected to Lexiscan stress test. His resting heart rate was 66 with blood pressure of 108/60. EKG showed sinus with right bundle branch block. The patient did not have any complaints of chest pain during the Lexiscan infusion, but did complain of some jaw discomfort. He did not have any arrhythmias on the monitor or any ST-T wave changes. After the Lexiscan infusion was over, he was injected with Cardiolite and stress images will be taken. ASSESSMENT AND PLAN: Lexiscan stress test without any ST-T wave changes or arrhythmias. Cardiolite images pending. MARIELLE ANDRADE MD SEE KEITH MD CM:STRESS:EXERCISE STRESS TEST REPORT [id number] MARIELLE ANDRADE MD
--- NOTE | ~2018-05-23 | EKG ---
[place], [place] ELECTROCARDIOGRAM REPORT NAME: BETZAIDA MANN UNIT #: [id number] ROOM: 511 DOCTOR: VALENTINA DRAFT REPORT BIRTHDATE: [birth year] [facility] Test Date: 2018-05-23 Test Time: 15:05:42 Pat Name: BETZAIDA MANN Department: Room: 511 Gender: M College Service Officer: Luanne Truong : 1950 Requested By: TIEN NUGENT Order Number: [id number] Reading MD: Roya Baker MD Measurements Intervals [place] Rate: 60 P: 30 IA: 182 QRS: 43 QRSD: 141 T: 8 QT: 441 QTc: 441 Interpretive Statements Sinus rhythm Probable left atrial enlargement Right bundle branch block Compared to ECG 05/18/2018 12:39:26 No significant changes Electronically Signed On 05-25-2018 14:15:49 PST by Roya Baker MD CM:EKGRPT:ELECTROCARDIOGRAM REPORT [id number] 1415 TIEN COLE DRAFT REPORT TIEN NUGENT DO
--- NOTE | ~2018-05-23 | CON ---
[place], [place] REPORT OF CONSULTATION NAME: BETZAIDA MANN UNIT #: [id number] ROOM: 509 DOCTOR: ZHAO OSPINA MD BIRTHDATE: [birth year] DOS: 05/27/2018 PSYCHIATRIC CONSULTATION CHIEF COMPLAINT: "I have been here 3 weeks. 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 Whitmore. The patient was complaining of chest tightness as well as significant shortness of breath. He was ultimately admitted to the fifth floor to rule out organic factors in attempt to restabilize on medication. While on the medical floor, the patient has been found to be very confused and very bizarre. He has been making very bizarre statements and has been hearing and seeing things. His anxiety level and his mood lability has also been somewhat problematic. PAST MEDICAL HISTORY: Remarkable for Bright's esophagus, bipolar one; benign prostatic hyperplasia, coronary artery disease, cervical radiculopathy, chronic kidney disease stage 3, diabetes, diverticulosis, essential tremor, falls, pulmonary embolus, hyperlipidemia, hypertension, orbital fracture, Parkinson's disease, and vitamin B12 deficiency. SOCIAL HISTORY: The patient is a former cigarette smoker, having smoked 1-2 packs a day for 40 years. He does drink alcohol and drinks Stoli's 1.73 liters per week. He has no illicit drug use, although he does have a previous history of cocaine use, having used for 10 years, quitting in 2007. ALLERGIES: He lists no known allergies. STRENGTHS: Good verbal skills, ambulatory. WEAKNESSES: Confusion, long-term psychiatric illness and polysubstance abuse. MENTAL STATUS: The patient is alert and oriented to self. He does not know that he is in the hospital. He believes that he is home and has been here for at least 3 if not 4 weeks. His comments can be very odd and unusual often inappropriate to the questions being asked of him. He also exhibited strange behavior and started doing calisthenics well in his bed. DIAGNOSIS: Bipolar type 1, mixed, rule out acute delirium. PLAN: I am going to go ahead and discontinue his Wellbutrin and his Paxil to simplify things. I will put him on Remeron as this will impact positively on his Parkinson's. It will also aid sleep and improve appetite. I will also start Seroquel, which is very low potency and should not exacerbate his underlying parkinsonian symptoms. I will start Seroquel at 50 mg at bedtime. He is definitely a Nuplazid candidate given his significant parkinsonian symptoms and I also believe he would be a candidate to admit to the [facility] once medically cleared. [place], [place] REPORT OF CONSULTATION NAME: BETZAIDA MANN UNIT #: [id number] ROOM: 509 DOCTOR: ZHAO OSPINA MD BIRTHDATE: [birth year] ZHAO OSPINA MD CM:CONSTR:REPORT OF CONSULTATION 0949 05/28/18 0418 interface
--- NOTE | ~2018-05-23 | PR ---
[place], [place] PROGRESS NOTE NAME: BETZAIDA MANN UNIT #: [id number] ROOM: 509 DOCTOR: KHUSHI FAN MD BIRTHDATE: [birth year] DOS: 05/27/2018 SUBJECTIVE: The patient seen and evaluated appears much more alert today compared to yesterday. No nausea, no vomiting. The patient has intermittent confusion, sacral valve has been obtained. The patient had a stress test done, no evidence of ischemia. Ejection fraction is well preserved. REVIEW OF SYSTEMS: Somewhat limited because of intermittent confusion. A 6-8 systems reviewed. She is awake with occasional intermittent confusion. OBJECTIVE: VITAL SIGNS: Blood pressure is stable in sinus rhythm. HEENT: Unremarkable. NECK: Supple, no JVD. LUNGS: Clear. HEART: Sounds are regular. ABDOMEN: Soft, nontender. NEUROLOGIC: Improving. LABORATORY DATA: Shows hemoglobin 10.1, hematocrit 33.1. Creatinine is 2.1 and potassium is 4.1. IMPRESSION: Atypical chest pain with normal stress test, renal failure with acute tubular necrosis, bradycardia, hyperglycemia, bipolar disorder, intermittent altered mental status, and Parkinson's disease. PLAN: Continue the present care. Cardiac status appears to be stable and we will follow up. KHUSHI FAN MD CM:PNTRANS [id number] [id number] KHUSHI FAN MD 06/07/18 1002 interface
--- NOTE | ~2018-05-23 | PR ---
[place], [place] PROGRESS NOTE NAME: BETZAIDA MANN UNIT #: [id number] ROOM: 509 DOCTOR: KHUSHI FAN MD BIRTHDATE: [birth year] DOS: 05/30/2018 SUBJECTIVE: The patient examined and condition appears to be stable. The patient does not communicate, has intermittent confusion. OBJECTIVE: VITAL SIGNS: Blood pressure is 155/79, heart rate is controlled. NECK: Supple, no JVD. LUNGS: Diminished air entry. HEART: Sounds are regular. NEUROLOGIC: Intermittent confusion. LABORATORY DATA: Hemoglobin 10.1, hematocrit 33.3. Sodium 146, potassium 4.4, BUN 33, creatinine is 1.6. IMPRESSION AND PLAN: The patient with altered mental status, encephalopathy could be related to alcohol withdrawal versus Parkinson's stress test showed no significant ischemia. PLAN: Continue the present medications as ordered. Continue the neurological and psychological workup and we will follow up. KHUSHI FAN MD CM:PNTRANS [id number] KHUSHI FAN MD 05/30/18 0738 interface
--- NOTE | ~2018-05-23 | PR ---
[place], [place] PROGRESS NOTE [id number] #: [id number] ROOM: 509 DOCTOR: SEE KEITH MD BIRTHDATE: [birth year] DOS: 05/29/2018 SUBJECTIVE: The patient was seen by Dr. Thomson yesterday and I did a consult on this gentleman on 05/24/2018 when he presented here with shortness of breath and some chest discomfort. He also has some chest tightness. At that time, he was able to give a reasonable information. Speech was fairly decent. Stress test demonstrated negative ischemia. He by gated SPECT images was low, but an echocardiogram showed normal LV systolic function, which is the more accurate. IMPRESSION: 1. This patient has coronary artery disease, but stress test is negative. No further workup is necessary. 2. His mentation seems to have slowed down, speech is more sluggish, may be related to medications. No new recommendations. SEE KEITH MD CM:PNTRANS [id number] SEE KEITH MD 05/30/18 0531 interface
--- NOTE | ~2018-05-23 | CON ---
[place], [place] REPORT OF CONSULTATION NAME: BETZAIDA MANN UNIT #: [id number] ROOM: 509 DOCTOR: MOY SCOTT MD,MICHELA BIRTHDATE: [birth year] DOS: 05/30/2018 PULMONARY CONSULTATION, EVALUATION AND MANAGEMENT CONSULTATION REQUESTED BY: The hospitalist service. REASON FOR CONSULTATION: For the assessment of change in mental status, possibility of pneumonia. This is a 67-year-old white male patient unable to give any history at this time. The patient opened his eyes to vocal commands, but could not have a verbal communication. The patient has been treated in this hospital for different wheezing. The history contained in the document with medical record documentation by other physicians' records. HISTORY OF PRESENT ILLNESS: This is a 67-year-old male patient who has been known with a past history of coronary artery disease with coronary artery stent and others. He has been admitted to the hospital on 05/23/2018. The patient has been reported with symptoms of having intermittent tightness in the chest. The patient was brought to the hospital by the family members in the private car. He has been also reported with symptoms of shortness of breath as well. The patient was suspected possibly aspiration per primary care attending. He has been currently noted lying in the bed, without any acute distress, has been known with psychiatric history significant as well and has been assessed by Dr. Becker for that reason as well. This morning as the patient was seen, he does open his eyes to vocal commands, but does not have a verbal communication, was not noted with any signs of respiratory distress, obvious chest congestion findings. REVIEW OF SYSTEMS: Could not be completed since the patient is noted with inability to have verbal communication. PAST MEDICAL HISTORY: Reported: 1. Bipolar disorder. 2. BPH. 3. Coronary artery disease. 4. Chronic kidney disease. 5. Type 2 diabetes mellitus. 6. Essential hypertension. 7. Essential tremors. 8. Hyperlipidemia. 9. Essential hypertension. 10. Parkinson disease. PAST SURGICAL HISTORY: Reported: 1. T and A. 2. Brain stimulator placement. 3. Cardiac catheterization and coronary artery stent insertion. SOCIAL HISTORY: Recorded as the patient with history of tobacco use in the past [place], [place] REPORT OF CONSULTATION NAME: BETZAIDA MANN UNIT #: [id number] ROOM: [facility] DOCTOR: MOY SCOTT MD,MICHELA BIRTHDATE: [birth year] 1 to 2 packs of cigarettes per day for 40 years. History of alcohol use was also reported, long-term. Past history of cocaine use was also noted, but the patient was noted free of any cocaine use in the past 10 years as listed in the history. FAMILY HISTORY: Noted that his father at the age of 86 due to complication of coronary artery disease. Mother at 72 years with complication of unknown cancer. MEDICATIONS: From home in each region were listed as Xanax, amantadine, aspirin, Lipitor, Wellbutrin, Sinemet, vitamin D, Avodart, folic acid, gabapentin, lithium, melatonin, omeprazole, pramipexole, Xarelto, and thiamine. Medications, which has been administered for the patient at this time are as the use of Solu-Medrol, Mucinex, DuoNeb, Seroquel, vitamin B12, thiamine, B12, Xarelto, folic acid, finasteride, Lipitor, aspirin, lithium carbonate, Sinemet, omeprazole, Levaquin, vancomycin, IV Zosyn, and others. DRUG ALLERGY HISTORY: Noted as no known drug allergies. PHYSICAL EXAMINATION: GENERAL: A 67-year-old male, who has been currently lying in the bed, in no distress. Height of 5 feet 6 inches, weight of 191 pounds, BMI 30.9. VITAL SIGNS: Recorded as a normal temperature, respiratory rate 18-20, heart rate 78-71, blood pressure 155/79-146/66. The pulse oxygen saturation recorded on 5 liters nasal cannula is 92% saturation. The oxygen saturation previously noted on 2 liters nasal cannula is 94% saturation. HEENT: Examination shows head was atraumatic. Eyes nonicterus. NECK: Supple. CARDIOVASCULAR: S1, S2 audible. LUNGS: The patient was noted grossly without any wheeze or crackle on auscultation. ABDOMEN: Soft, nontender. Bowel sounds present. EXTREMITIES: No acute edema. MUSCULOSKELETAL: Without any acute deformities. CENTRAL NERVOUS SYSTEM: Change in mental status. VISIBLE SKIN: Without any lesions or rashes. LABORATORY DATA: The arterial blood gas on 3 liters nasal cannula that was done at midnight; pH of 7.37, pCO2 of 36, pO2 of 60.7. The renal function panel for the patient were recorded this morning as BUN 33, creatinine 1.69. Sodium 146. The TSH level done on the 2nd was noted as normal. There was no CBC done for the patient in the last 3 days. The last CBC of 05/27/2018; WBC count 6.7, hemoglobin 10, hematocrit 33.7 with a platelet count 189,000. RADIOLOGY DATA: Reviewed for this patient. The patient has an echocardiogram that was done on 05/24/[address] Baker reported as findings of trace tricuspid regurgitation. Diastolic dysfunction with normal left ventricular ejection fraction was also reported. Chest x-ray that was done on admission of 05/23/2018 essentially noted clear of any acute infiltration. The chest x-ray [place], [place] REPORT OF CONSULTATION NAME: BETZAIDA MANN UNIT #: [id number] ROOM: [facility] DOCTOR: MOY SCOTT MD,[facility] BIRTHDATE: [birth year] on the 3rd of this month was noted with pulmonary infiltration, which were noted in the right lung. Chest x-ray, another one was repeated this morning was noted with bilateral infiltration area of consolidation in the lungs. The brain stimulator appeared to be noted in place and stimulator noted in the upper portion of the chest, most likely implanted in the brain. IMPRESSION: The patient who has been admitted to the hospital noted with current findings of: 1. Persistent mental status changes with acute pneumonia, possibility of aspiration pneumonia would be considered with the sepsis and other etiology. 2. History of significant psychiatric problems including bipolar disorder and others as reported. 3. Elevation of BUN and creatinine, which was also noted with partial reduction from admission with reduction in the creatinine. 4. The patient with history of coronary artery disease without any evidence of myocardial infarction. 5. History of congestive heart failure with diastolic dysfunction, does not seem to have an acute ongoing congestive heart failure. The area of atelectasis in the lungs would also be considered with impaired secretions. 6. Acute respiratory failure secondary to the acute aspiration pneumonia, likely. PLAN OF MANAGEMENT: The patient already started broad-spectrum intravenous antibiotic, that will be continued. He is getting the anticoagulation with Xarelto based on kidney function low dose 10 mg daily, that will be continued. The patient has been planned for transfer to [facility] for further comprehensive assessment for the Neurology opinion and other assessments, that would be considered appropriate. Other therapy, plan of management. Oxygen supplementation for the acute respiratory failure and management for acute pneumonia to be continued and maintain pulse ox 92% or greater. At this time, the patient does not have any respiratory distress and adequately saturating on current supplemental oxygen, would not require BiPAP. Avoid any oral feeding to prevent further aspirations. Usual care. MICHELA WINTER MD CM:CONSTR:REPORT OF CONSULTATION 1253 05/31/18 0048 interface
--- NOTE | ~2018-05-23 | CON ---
[place], [place] REPORT OF CONSULTATION NAME: BETZAIDA MANN UNIT #: [id number] ROOM: 511 DOCTOR: SEE KEITH MD BIRTHDATE: [birth year] DOS: 05/24/2018 HISTORY OF PRESENT ILLNESS: This is a 67-year-old -Prydeinig man who has parkinsonism and has had stimulator implanted, which improved his ambulation and coordination. He has coronary artery disease and had a coronary stent deployed in 2009. He has chronic kidney disease, diabetes mellitus, essential hypertension, frequent falls because of neurological disease and remote pulmonary embolism, essential hypertension and orthostatic hypotension. He has had tonsillectomy. I saw him in the office a couple of weeks ago and at that time he has shortness of breath with some kind of chest discomfort, which he does not have now. He came to the Emergency Department because of increasing shortness of breath and also had some chest tightness on and off that had been going on for a few months. His chest pain is mild. It does not radiate and is not accompanied by any sweating, nausea, no loss of consciousness. HOME MEDICATIONS: Include alprazolam, amantadine, aspirin, atorvastatin, Wellbutrin, carbidopa/levodopa, gabapentin, lithium, melatonin, omeprazole, paroxetine and rivaroxaban. PHYSICAL EXAMINATION: GENERAL: This reveals a patient who is alert, oriented, but he is rather slow because of his neurological issues. He is not diaphoretic. Looks pale, but is not tachypneic. Temperature is normal. VITAL SIGNS: Pulse is 56 regular, blood pressure 134/66. LABORATORY DATA: Troponin I levels have been less than 0.015, creatinine is 1.76, potassium 4.3 and total cholesterol 140, HDL 40, LDL 81 and triglyceride 224/3000. DIAGNOSTIC STUDIES: ECG showed normal sinus rhythm at 61 beats per minute and complete right bundle branch block. No acute changes. IMPRESSION: This patient with known coronary artery disease, has had exertional shortness of breath and also some chest tightness and I think it is important to exclude underlying coronary artery stenosis like possible cause; therefore, I recommended a Lexiscan Cardiolite to be performed in this patient. An echocardiogram should also be considered. [place], [place] REPORT OF CONSULTATION NAME: BETZAIDA MANN UNIT #: [id number] ROOM: 511 DOCTOR: SEE KEITH MD BIRTHDATE: [birth year] SEE KEITH MD CM:CONSTR:REPORT OF CONSULTATION 0752 05/24/18 1654 interface
--- NOTE | ~2018-05-23 | EKG ---
[place], [place] ELECTROCARDIOGRAM REPORT NAME: BETZAIDA MANN UNIT #: [id number] ROOM: 511 DOCTOR: VALENTINA DRAFT REPORT BIRTHDATE: [birth year] [facility] Test Date: 2018-05-23 Test Time: 12:59:01 Pat Name: BETZAIDA MANN Department: Room: 511 Gender: M Materials Specialist: : 1950 Requested By: MATEUS LEON Order Number: [id number] Reading MD: Roya Baker MD Measurements Intervals [place] Rate: 61 P: 32 WV: 157 QRS: 42 QRSD: 136 T: -15 QT: 418 QTc: 421 Interpretive Statements Sinus rhythm Right bundle branch block Compared to ECG 05/18/2018 12:39:26 No significant changes Electronically Signed On 05-25-2018 14:15:32 PST by Roya Baker MD CM:EKGRPT:ELECTROCARDIOGRAM REPORT 1259 1415 MATEUS COLE DRAFT REPORT MATEUS LEON DO
--- NOTE | ~2018-05-23 | PR ---
[place], [place] PROGRESS NOTE [id number] #: [id number] ROOM: 509 DOCTOR: KHUSHI FAN MD BIRTHDATE: [birth year] DOS: 05/28/2018 SUBJECTIVE: The patient examined. He is awake, alert and responsive. No nausea, no vomiting. No chest pain. He is oriented, intermittent confusion is present. Stress test normal with LV function was diminished as per Dr. Baker. OBJECTIVE: GENERAL: The patient is alert, awake, not in acute distress. HEENT: Unremarkable. NECK: Supple, no JVD. LUNGS: Diminished breath sounds. HEART: Heart sounds are regular. NEUROLOGIC: Stable with intermittent confusion. LABORATORY DATA: Shows hemoglobin 10.1, hematocrit 33.3. Electrolytes are normal. Creatinine is 1.7. IMPRESSION AND PLAN: The patient has seen by psychiatrist also. Continue the present medications. Heart rate is stable. The patient is on rivaroxaban 10 mg daily, atorvastatin. Unfortunately, he cannot be put on BRIAN inhibitors because of the renal insufficiency. We will follow up. KHUSHI FAN MD CM:PNTRANS 1044 1213 KHUSHI FAN MD 05/28/18 1213 interface
--- NOTE | ~2018-05-23 | PR ---
[place], [place] PROGRESS NOTE [id number] #: [id number] ROOM: 509 DOCTOR: KHUSHI FAN MD BIRTHDATE: [birth year] DOS: 05/26/2018 SUBJECTIVE: The patient evaluated. The patient was seen by Dr. Baker yesterday. The patient appears to be obtunded and very lethargic. History of heavy alcohol abuse. He wakes up, but intermittent confusion. Discussed with the who is in person. He is in sinus rhythm. Heart rate is 130/65. REVIEW OF SYSTEMS: Extremely limited. HEENT: Unremarkable. NECK: Supple, no JVD. LUNGS: Diminished breath sounds. HEART: Heart sounds are regular. NEUROLOGIC: Difficult to assess. He appears to be obtunded. LABORATORY DATA: Today hemoglobin is 10.5, hematocrit 35.5. Electrolytes are normal. Creatinine is 1.7. Echocardiogram showed an excellent ejection fraction. The patient had a stress test as per Dr. Baker. There is no ischemia. ASSESSMENT AND RECOMMENDATIONS: Altered mental status, atypical chest discomfort, well preserved systolic function, history of alcohol abuse. Monitor for alcohol withdrawal. Monitor the heart rate and blood pressure very closely. History of renal failure, improved. Generalized weakness. Continue physical therapy. History of bipolar disorder. We will follow up. KHUSHI FAN MD CM:PNTRANS 1403 1427 KHUSHI FAN MD 05/26/18 1427 interface
[2018-05-23 11:48] VITALS: BP 126/63
[2018-05-23 12:22] LABS: HEMATOCRIT 36.4 % (42.0-52.0); HEMOGLOBIN 11.1 g/dl (14.0-18.0); MEAN CORPUSCULAR HGB 33.5 pg (27.0-31.0); MEAN CORPUSCULAR HGB CONC 30.5 g/dl (33.0-37.0); MEAN PLATELET VOLUME 9.6 fl (9.6-12.3); PLATELET COUNT AUTOMATED 219 10*3/uL (130-400); RED BLOOD COUNT 3.31 10*6/uL (4.50-5.90); RED CELL DISTRI WIDTH 15.1 % (0-14.5); WHITE BLOOD COUNT 6.1 10*3/uL (4.8-10.8)
[2018-05-23 12:44] LABS: BASOPHILS 1 % (0-1); TOTAL CELLS COUNTED 100 #CELLS
[2018-05-23 12:45] LABS: PLATELET SUFFICIENCY NORMAL (NORMAL); POLYCHROMASIA SLIGHT
[2018-05-23 12:56] LABS: ALBUMIN 3.1 gm/dl (3.1-4.5); ALKALINE PHOSPHATASE 144 U/L (45-117); BUN 14 mg/dl (7-24); CHLORIDE 108 mmol/L (98-107); CREATININE 1.95 mg/dL (0.70-1.30); POTASSIUM 4.5 mmol/L (3.5-5.1); SGOT/AST 5 IU/L (3-35); SGPT/ALT 7 U/L (12-78); SODIUM 141 mmol/L (136-145); TOTAL PROTEIN 6.6 gm/dL (6.4-8.2)
[2018-05-23 13:03] LABS: TROPONIN I < 0.015 ng/ml (<0.045)
[2018-05-23] MEDS ORDERED: PAROXETINE10 MG PO (14:08)
[2018-05-23] MEDS ORDERED: SINEMET CR 50-1 EACH PEG (14:09)
[2018-05-23] MEDS ORDERED: LITHIUM CARBON450 M1 PO (14:11)
[2018-05-23] MEDS ORDERED: ONCE-DAILY WEL150 MG PO (14:12)
[2018-05-23 14:25] VITALS: BP 137/56
[2018-05-23] MEDS ORDERED: SINEMET 25-1001 EACH PEG (15:25)
[2018-05-23] MEDS ORDERED: XANAX0.5 MG PO (15:27)
[2018-05-23] MEDS ORDERED: FOLIC ACID0.8 M1 PEG (15:31)
[2018-05-23] MEDS ORDERED: XARELTO10 MG PEG (15:32)
[2018-05-23] MEDS ORDERED: VITAMIN D5000 UNIT PEG (15:32)
[2018-05-23] MEDS ORDERED: VITAMIN B-1100 M1 PEG (15:33)
[2018-05-23] MEDS ORDERED: AMANTADINE HCL100 M1 PEG (15:33)
[2018-05-23] MEDS ORDERED: MELATONIN5 M6 PO (15:33)
[2018-05-23 16:00] VITALS: BP 137/56
[2018-05-23 20:00] VITALS: BP 144/40
[2018-05-24] VITALS: BP 134/66
[2018-05-24 06:22] LABS: HEMATOCRIT 36.4 % (42.0-52.0); HEMOGLOBIN 10.6 g/dl (14.0-18.0); MEAN CORPUSCULAR HGB 33.4 pg (27.0-31.0); MEAN CORPUSCULAR HGB CONC 29.1 g/dl (33.0-37.0); MEAN PLATELET VOLUME 9.4 fl (9.6-12.3); PLATELET COUNT AUTOMATED 191 10*3/uL (130-400); RED BLOOD COUNT 3.17 10*6/uL (4.50-5.90); RED CELL DISTRI WIDTH 15.3 % (0-14.5)
[2018-05-24 06:34] LABS: MEAN CELL VOLUME 114.8 fl (80.0-94.0)
[2018-05-24 06:37] LABS: CREATININE 1.76 mg/dL (0.70-1.30); FREE T4 0.89 ng/dl (0.76-1.46); PHOSPHOROUS 3.4 mg/dL (2.5-4.9); POTASSIUM 4.3 mmol/L (3.5-5.1); TOTAL PROTEIN 6.3 gm/dL (6.4-8.2)
[2018-05-24 06:42] LABS: THYROID STIM HORMONE (HS) 0.843 uIU/ml (0.358-4.75)
[2018-05-24 06:45] LABS: ACT PARTIAL THROMBO TIME 27.9 SECONDS (20.8-31.5)
[2018-05-24 06:55] LABS: PLATELET SUFFICIENCY NORMAL (NORMAL); POLYCHROMASIA SLIGHT; TOTAL CELLS COUNTED 100 #CELLS
[2018-05-24 08:00] VITALS: BP 122/66
[2018-05-24 08:32] LABS: VITAMIN D, 25-HYDROXY 64.9 ng/mL (30-100)
[2018-05-24 12:00] VITALS: BP 134/56
[2018-05-24 16:00] VITALS: BP 100/61
[2018-05-24 20:00] VITALS: BP 141/67
[2018-05-25] VITALS: BP 113/86
[2018-05-25 08:00] VITALS: BP 132/64
[2018-05-25 10:26] LABS: HEMOGLOBIN 11.2 g/dl (14.0-18.0); MEAN CELL VOLUME 113.1 fl (80.0-94.0); MEAN CORPUSCULAR HGB 33.3 pg (27.0-31.0); MEAN CORPUSCULAR HGB CONC 29.5 g/dl (33.0-37.0); MEAN PLATELET VOLUME 9.8 fl (9.6-12.3); PLATELET COUNT AUTOMATED 191 10*3/uL (130-400); RED BLOOD COUNT 3.36 10*6/uL (4.50-5.90); RED CELL DISTRI WIDTH 14.9 % (0-14.5); WHITE BLOOD COUNT 6.4 10*3/uL (4.8-10.8)
[2018-05-25 10:52] LABS: CREATININE 1.73 mg/dL (0.70-1.30)
[2018-05-25 10:53] LABS: PLATELET SUFFICIENCY NORMAL (NORMAL); TOTAL CELLS COUNTED 100 #CELLS
[2018-05-25 12:00] VITALS: BP 130/65
[2018-05-25] MEDS ORDERED: B12,B-12,B 12500 MC1 PO (15:52)
[2018-05-25 16:00] VITALS: BP 144/77
[2018-05-25 20:00] VITALS: BP 140/76
[2018-05-26] VITALS: BP 138/60
[2018-05-26 04:00] VITALS: BP 118/98; BP 151/80
[2018-05-26 06:13] LABS: HEMATOCRIT 35.5 % (42.0-52.0); HEMOGLOBIN 10.5 g/dl (14.0-18.0); MEAN CELL VOLUME 111.6 fl (80.0-94.0); MEAN CORPUSCULAR HGB CONC 29.6 g/dl (33.0-37.0); MEAN PLATELET VOLUME 9.6 fl (9.6-12.3); PLATELET COUNT AUTOMATED 186 10*3/uL (130-400); RED BLOOD COUNT 3.18 10*6/uL (4.50-5.90); RED CELL DISTRI WIDTH 15.2 % (0-14.5)
[2018-05-26 06:31] LABS: POTASSIUM 4.6 mmol/L (3.5-5.1)
[2018-05-26 06:38] LABS: ALBUMIN 3.4 gm/dl (3.1-4.5); CREATININE 1.73 mg/dL (0.70-1.30); TOTAL PROTEIN 6.8 gm/dL (6.4-8.2)
[2018-05-26 07:38] LABS: PLATELET SUFFICIENCY NORMAL (NORMAL); TOTAL CELLS COUNTED 100 #CELLS
[2018-05-26 08:00] VITALS: BP 112/64
[2018-05-26 12:00] VITALS: BP 112/58
[2018-05-26 13:58] LABS: ABG BASE EXCESS 0.8 mmol/L (-2.0-2.0); ABG HCO3 25.3 mmol/l (22-26); ABG O2 SATURATION 95.5 % (95-97); ARTERIAL BLOOD GAS PCO2 43.6 mmHg (35-45); ARTERIAL BLOOD GAS PH 7.384 (7.35-7.45); ARTERIAL BLOOD GAS PO2 73.8 mmHg (80-90)
[2018-05-26 14:03] LABS: HEMATOCRIT 34.7 % (42.0-52.0); HEMOGLOBIN 10.4 g/dl (14.0-18.0); MEAN CELL VOLUME 111.9 fl (80.0-94.0); MEAN CORPUSCULAR HGB 33.5 pg (27.0-31.0); MEAN PLATELET VOLUME 9.6 fl (9.6-12.3); PLATELET COUNT AUTOMATED 185 10*3/uL (130-400); RED CELL DISTRI WIDTH 15.6 % (0-14.5)
[2018-05-26 14:21] LABS: PLATELET SUFFICIENCY NORMAL (NORMAL); TOTAL CELLS COUNTED 100 #CELLS
[2018-05-26 14:24] LABS: ALBUMIN 3.1 gm/dl (3.1-4.5); ALKALINE PHOSPHATASE 140 U/L (45-117); BUN 20 mg/dl (7-24); CHLORIDE 107 mmol/L (98-107); CREATININE 1.86 mg/dL (0.70-1.30); POTASSIUM 4.7 mmol/L (3.5-5.1); SGOT/AST 8 IU/L (3-35); SODIUM 140 mmol/L (136-145); TOTAL PROTEIN 6.8 gm/dL (6.4-8.2)
[2018-05-26 14:28] LABS: SGPT/ALT < 6 U/L (12-78)
[2018-05-26 16:00] VITALS: BP 104/50
[2018-05-26 16:51] LABS: BILIRUBIN NEGATIVE (NEGATIVE); BLOOD NEGATIVE (NEGATIVE); CLARITY CLEAR (CLEAR); COLOR YELLOW (YELLOW); GLUCOSE NEGATIVE (NEGATIVE); KETONE TRACE (NEGATIVE); LEUKO ESTERASE NEGATIVE (NEGATIVE); NITRITE NEGATIVE (NEGATIVE); PH 6.5 (5.0-9.0)
[2018-05-26 16:58] LABS: BACTERIA 1+; MUCOUS 1+; WBC 0-2 wbc/hpf (0-5)
[2018-05-26 16:59] LABS: URINE AMPHETAMINES < 1000 (1000ng/ml); URINE BARBITURATES < 200 (200ng/ml); URINE BENZODIAZEPINES > 200 (200ng/ml); URINE CANNABINOIDS (THC) < 50 (50ng/ml); URINE COCAINE < 300 (300ng/ml); URINE METHADONE < 300 (300ng/ml); URINE OPIATES < 300 (300ng/ml)
[2018-05-26 17:00] LABS: URINE PHENCYCLIDINE < 25 (25ng/ml)
[2018-05-26 20:00] VITALS: BP 105/71
[2018-05-27] VITALS: BP 121/54
[2018-05-27 06:21] LABS: HEMATOCRIT 33.3 % (42.0-52.0); HEMOGLOBIN 10.1 g/dl (14.0-18.0); MEAN CELL VOLUME 111.7 fl (80.0-94.0); MEAN CORPUSCULAR HGB 33.9 pg (27.0-31.0); MEAN CORPUSCULAR HGB CONC 30.3 g/dl (33.0-37.0); MEAN PLATELET VOLUME 9.9 fl (9.6-12.3); PLATELET COUNT AUTOMATED 189 10*3/uL (130-400); RED BLOOD COUNT 2.98 10*6/uL (4.50-5.90); RED CELL DISTRI WIDTH 15.5 % (0-14.5); WHITE BLOOD COUNT 6.7 10*3/uL (4.8-10.8)
[2018-05-27 06:53] LABS: CREATININE 2.13 mg/dL (0.70-1.30); POTASSIUM 4.1 mmol/L (3.5-5.1)
[2018-05-27 07:39] LABS: BASOPHILS 1 % (0-1); TOTAL CELLS COUNTED 100 #CELLS
[2018-05-27 07:40] LABS: PLATELET SUFFICIENCY NORMAL (NORMAL); POLYCHROMASIA SLIGHT
[2018-05-27 08:00] VITALS: BP 157/61
[2018-05-27 12:00] VITALS: BP 103/55
[2018-05-27 12:09] LABS: FREE T4 1.03 ng/dl (0.76-1.46)
[2018-05-27 12:14] LABS: THYROID STIM HORMONE (HS) 0.977 uIU/ml (0.358-4.75)
[2018-05-27 12:59] LABS: VITAMIN D, 25-HYDROXY 61.1 ng/mL (30-100)
[2018-05-27 16:00] VITALS: BP 139/72
[2018-05-27 20:00] VITALS: BP 124/63
[2018-05-28] VITALS: BP 110/57; BP 141/71
[2018-05-28 06:29] LABS: CREATININE 1.71 mg/dL (0.70-1.30); POTASSIUM 4.3 mmol/L (3.5-5.1)
[2018-05-28 08:15] VITALS: BP 142/68
[2018-05-28 12:00] VITALS: BP 128/67
[2018-05-28 16:00] VITALS: BP 122/73
[2018-05-28 20:00] VITALS: BP 135/65
[2018-05-29] VITALS: BP 121/57
[2018-05-29 08:00] VITALS: BP 128/62
[2018-05-29 12:00] VITALS: BP 121/59
[2018-05-29 16:00] VITALS: BP 133/65
[2018-05-29 20:00] VITALS: BP 150/61
[2018-05-30] VITALS: BP 155/79
[2018-05-30 00:22] LABS: ABG BASE EXCESS -3.5 mmol/L (-2.0-2.0); ABG HCO3 20.7 mmol/l (22-26); ABG O2 SATURATION 89.3 % (95-97); ARTERIAL BLOOD GAS PCO2 36.2 mmHg (35-45); ARTERIAL BLOOD GAS PH 7.375 (7.35-7.45); ARTERIAL BLOOD GAS PO2 60.7 mmHg (80-90)
[2018-05-30 07:01] LABS: ALBUMIN 2.6 gm/dl (3.1-4.5); CREATININE 1.69 mg/dL (0.70-1.30); PHOSPHOROUS 2.8 mg/dL (2.5-4.9); POTASSIUM 4.4 mmol/L (3.5-5.1)
[2018-05-30 08:00] VITALS: BP 146/66
[2018-05-30 12:00] VITALS: BP 145/52
[2018-05-30 16:00] VITALS: BP 130/67
[2018-07-22] MEDS ORDERED: NORVASC5 MG PEG
[2018-07-22] MEDS ORDERED: LEVOTHYROXINE50 MCG JT (00:04)
[2018-07-22] MEDS ORDERED: MIRALAX17 GM PO (00:07)
[2018-07-22] MEDS ORDERED: TEARS NATURALE,15 ML OPH (00:08)
[2018-07-22] MEDS ORDERED: VALPROIC ACI50 MG/ML PO (00:11)
[2018-07-26] MEDS ORDERED: XANAX1 MG PO (18:43)
[2018-07-28] MEDS ORDERED: ONDANSETRON4 MG/5 M2 PEG (12:20)
[2018-07-28] MEDS ORDERED: PROTONIX40 M2 PEG (12:20)
[2018-08-08] MEDS ORDERED: COUMADIN5 M2 PEG (11:04)
[2018-08-21] MEDS ORDERED: TRANSDERM-SCOP1 EAC1 TD (23:10)
[2018-08-21] MEDS ORDERED: REGLAN5 MG PO (23:16)
== END 2018-05-30 20:33 | disposition short-term general hospital (02) | DRG 682 ==
LOC: ED 11:44 → EDHOLD 13:34 → 5E 13:34
PROVIDERS: Internal Medicine; Internal Medicine Nephrology; Psychiatry & Neurology Psychiatry; Registered Nurse; Student in an Organized Health Care Education/Training Program; ADMIT Internal Medicine
PROC: 3E073KZ Introduction of Other Diagnostic Substance into Coronary Artery, Percutaneous Approach (ICD-10-PCS; principal; 2018-05-25)
PROC: 4A02XM4 Measurement of Cardiac Total Activity, External Approach (ICD-10-PCS; principal; 2018-05-25)
DX: N17.0 Acute kidney failure with tubular necrosis (principal); J69.0 Pneumonitis due to inhalation of food and vomit; G93.41 Metabolic encephalopathy; E44.1 Mild protein-calorie malnutrition; F31.60 Bipolar disorder, current episode mixed, unspecified; D53.9 Nutritional anemia, unspecified; E87.8 Other disorders of electrolyte and fluid balance, not elsewhere classified; R74.8 Abnormal levels of other serum enzymes; E66.09 Other obesity due to excess calories; M54.12 Radiculopathy, cervical region; G25.0 Essential tremor; R07.89 Other chest pain; E11.65 Type 2 diabetes mellitus with hyperglycemia; E53.8 Deficiency of other specified B group vitamins; G20 Parkinson's disease; N18.3 Chronic kidney disease, stage 3 (moderate); E11.22 Type 2 diabetes mellitus with diabetic chronic kidney disease; I25.10 Atherosclerotic heart disease of native coronary artery without angina pectoris; F02.80 Dementia in other diseases classified elsewhere, unspecified severity, without behavioral disturbance, psychotic disturbance, mood disturbance, and anxiety; K57.90 Diverticulosis of intestine, part unspecified, without perforation or abscess without bleeding; I45.10 Unspecified right bundle-branch block; I36.1 Nonrheumatic tricuspid (valve) insufficiency; K22.719 Barrett's esophagus with dysplasia, unspecified; E78.5 Hyperlipidemia, unspecified; I12.9 Hypertensive chronic kidney disease with stage 1 through stage 4 chronic kidney disease, or unspecified chronic kidney disease; N40.0 Benign prostatic hyperplasia without lower urinary tract symptoms; I95.1 Orthostatic hypotension; Z91.81 History of falling; Z87.81 Personal history of (healed) traumatic fracture; Z95.5 Presence of coronary angioplasty implant and graft; Z87.891 Personal history of nicotine dependence; Z82.49 Family history of ischemic heart disease and other diseases of the circulatory system; Z83.3 Family history of diabetes mellitus; Z80.9 Family history of malignant neoplasm, unspecified; Z81.8 Family history of other mental and behavioral disorders; Z79.82 Long term (current) use of aspirin; Z79.899 Other long term (current) drug therapy

== ENCOUNTER 2018-08-21 23:33 | Inpatient (IN) | payer OTHER ==
[~2018-08-21] VITALS: Ht 177.8 cm; Wt 71.9 kg
--- NOTE | ~2018-08-21 | PR ---
[place], [place] PROGRESS NOTE NAME: BETZAIDA MANN UNIT #: [id number] ROOM: [facility] DOCTOR: MOY SCOTT MD,MICHELA BIRTHDATE: [birth year] DOS: 08/23/2018 SUBJECTIVE: The patient is independently seen and examined in neyr-zh-lmza encounter, history was confirmed. Physical examination was performed. Labs were reviewed. Assessment and management for today's note was personally completed. Note done by the medical artist was approved. The patient continued to be resting, on this morning the patient was noted fully awake and alert with improvement, completely noted mental status upon vocal commands, answering the questions. He had not been noted any symptoms of fever or chills. He has not been noted any other abnormalities. At this time, the family members initially wanted the patient to be comfort care and hospice, but now they want the patient to be a full code. PHYSICAL EXAMINATION: VITAL SIGNS: For the patient noted temperature 101 degrees Fahrenheit, normal temperature. The patient noted low temperature of 98.1 yesterday afternoon as well. The respiratory rate range between 16 - 20. Heart rate 87 - 62, blood pressure 170/51 - 111/61. Pulse oxygen saturation recorded on 2 liters nasal cannula 100% saturation with the BiPAP that was ordered yesterday, noted as 100% saturation 35% oxygen, BiPAP use. HEENT: Examination shows head was atraumatic. EYES: No icterus. NECK: Supple. CARDIOVASCULAR: S1, S2 is audible. LUNGS: The patient was noted without any wheezing or crackles. ABDOMEN: Soft, nontender. Bowel sounds present. EXTREMITIES: The patient was noted without any acute edema. MUSCULOSKELETAL: The patient without deformities. CENTRAL NERVOUS SYSTEM: Currently noted to be fully awake, alert, oriented. No gross focal deficit. LABORATORY DATA: The patient's CBC today, WBC count 8.9, hemoglobin 8.9, hematocrit 29.5, platelet 163,000. CT scan of the head that was ordered yesterday was completed, was noted bilateral neural stimulator is in place without any acute intracranial abnormality. The ammonia level noted normal at 22. Urine drug screen noted positive for benzodiazepine. CBC this morning was reviewed and noted as normal CBC, WBC count normal, hemoglobin 8.9, hematocrit was 29.5, platelet count of 162,000. BMP this morning BUN 22, creatinine 2.10. Sodium 148. IMPRESSION: 1. The patient with resolution of mental status, most likely secondary to acute pneumonia. 2. Mild acute kidney disease with intravascular volume depletion as well. 3. History of chronic parkinsonism as well. 4. Supratherapeutic INR with Coumadin toxicity drug interaction. PLAN OF MANAGEMENT: Continue hold of the Coumadin at this time. Continue antibiotic, reduction of broad-spectrum antibiotic based on all the culture, which has been sent. Oxygen supplementation, use of the BiPAP as well. [place], [place] PROGRESS NOTE NAME: BETZAIDA MANN UNIT #: [id number] ROOM: [facility] DOCTOR: MOY SCOTT MD,MICHELA BIRTHDATE: [birth year] Additional treatment changes will be made based on progression of his illness. MICHELA WINTER MD CM:PNTRANS [phone] MICHELA SCOTT MD 08/24/18 0234 interface
--- NOTE | ~2018-08-21 | CON ---
[place], [place] REPORT OF CONSULTATION NAME: BETZAIDA MANN UNIT #: [id number] ROOM: [facility] DOCTOR: GRETA TRAVIS DO BIRTHDATE: [birth year] DOS: 08/22/2018 PULMONARY CONSULTATION NOTE REASON FOR CONSULTATION: Acute hypoxia. REQUESTED BY: Hospitalist service. HISTORY OF PRESENT ILLNESS: A 67-year-old man was transferred to the ICU last night after becoming acutely hypoxic. The patient was found during vital checks to be saturating in the 60s. The patient sounded congested. Rapid response was called at that time. The patient was moved to the floor for further evaluation. The patient was deep suctioned, once upstairs and his oxygenation improved. The patient has a history of PEG tube placement for recurrent aspirations. The patient has been vomiting for the last 7 days. The PEG tube feedings have been decreased, but the patient continued to vomit. The patient is otherwise unable to give any other history due to his underlying dementia. It is unknown if there is a change in mental status or if this is the patient's current mental status, allowed to talk with family members. HPI is otherwise limited based on current mental status. PAST MEDICAL HISTORY: The patient has history of: 1. Atrial fibrillation. 2. Bright's esophagus. 3. Bipolar disorder. 4. BPH. 5. Coronary artery disease. 6. Cervical radiculopathy. 7. Chronic kidney disease stage 3. 8. Diabetes. 9. Diverticulosis. 10. Essential tremor. 11. Pulmonary embolism. 12. Hyperlipidemia. 13. Hypertension. 14. Parkinson's disease. PAST SURGICAL HISTORY: 1. Heart stent. 2. Tonsillectomy and adenoidectomy. 3. Deep brain stimulator. 4. Insertion of PEG tube. SOCIAL HISTORY: 1. The patient consumes alcohol occasionally. 2. Former smoker, quit in 2007. 3. History of cocaine abuse. FAMILY HISTORY: Father at age 86, history of [place] requiring CABG in the father mid 50s as well as diabetes. Mother, she had a history of Parkinson's [place], [place] REPORT OF CONSULTATION NAME: BETZAIDA MANN UNIT #: [id number] ROOM: [facility] DOCTOR: GRETA TRAVIS DODATE: 54 disease and an unknown cancer. She at the age of 72. ALLERGIES: THE PATIENT IS ALLERGIC TO GEODON. HOME MEDICATIONS: The patient was taking amantadine, amlodipine, atorvastatin, carbidopa/levodopa, vitamin D, folic acid, gabapentin, levothyroxine, metoclopramide, and pantoprazole. REVIEW OF SYSTEMS: Unable to assess due to the patient's underlying dementia. PHYSICAL EXAMINATION: VITAL SIGNS: Temperature 97, pulse rate 62, respiratory rate 14, blood pressure is 110/60. The patient is 98% on 2 liters. GENERAL APPEARANCE: The patient is arousable, but does not answer questions. HEENT: Head is normocephalic, atraumatic. EARS, NOSE AND THROAT: No lesions or masses. Eyes, nonicteric. NECK: Trachea midline. Supple, nontender. HEART: S1, S2 audible. LUNGS: Diminished bilaterally with rhonchi bilaterally. ABDOMEN: Soft, nontender, bowel sounds present in all 4 quadrants. EXTREMITIES: No clubbing, cyanosis, edema, or erythema. NEUROLOGIC: Unable to fully assess, but no obvious focal neurologic deficits. SKIN: Warm and dry. No rashes. LABORATORY DATA: From last night shows white count 10.2, hemoglobin 9.1, hematocrit 30.4, platelet count 206. Chemistry: Sodium 147, potassium 4.1, carbon dioxide 110, BUN 27, creatinine 1.99. Blood gases showed pH 7.359, CO2 47, O2 91.8, and bicarbonate was 26. IMAGIN. Chest CT was performed showing multifocal pneumonia. 2. Emphysema with mild bronchiectasis in the right upper lobe. IMPRESSION: 1. Acute respiratory failure with hypoxia. 2. Pneumonia, likely aspiration; however, with the multifocal nature, healthcare-associated, hospital-acquired and community-acquired pneumonia should all be considered depending on when the patient first got sick. Due to the patient's mental status, it is tough to discern when he started having respiratory distress, if it his prehospital stay or not. 3. Parkinson's disease. 4. Diabetes. 5. PEG tube due to aspiration risk. 6. Bipolar 1. PLAN: The patient was noted to desat a few times, therefore, BiPAP, we started with settings of 10/6 with a backup rate of 8, with a goal of keeping his sats above 92 at all times. The patient will be given vancomycin, Zosyn, and Levaquin due to the unknown timing of when the patient had respiratory distress due to the fact he cannot tell us. The patient wants to be given breathing [place], [place] REPORT OF CONSULTATION NAME: BETZAIDA MANN UNIT #: [id number] ROOM: [facility] DOCTOR: GRETA TRAVIS DO BIRTHDATE: [birth year] treatments. Any additional changes will be based on progression of illness. We would like to discuss code status and goals of care with the patient's family. I agree with keeping the patient n.p.o. for now; however, the patient will need to resume feedings as soon as possible to prevent weakness and any cachexia from happening. Thank you very much for allowing us to participate in this patient's care. Any other additional changes based on progression of illness. Cirilo Travis DO MICHELA WINTER MD CM:CONSTR:REPORT OF CONSULTATION 1043 08/22/18 1723 interface
--- NOTE | ~2018-08-21 | PR ---
[place], [place] PROGRESS NOTE NAME: BETZAIDA MANN UNIT #: [id number] ROOM: [facility] DOCTOR: GRETA TRAVIS DO BIRTHDATE: [birth year] DOS: 08/24/2018 PULMONARY PROGRESS NOTE SUBJECTIVE: The patient states that he feels a little better today. However, the patient does not really offer very much information as he does not talk much. The patient offered no other complaints. The patient has a PEG tube repositioned by Dr. Pop yesterday. PHYSICAL EXAMINATION: VITAL SIGNS: Temperature is 98.6, pulse 90, respiratory rate 20, blood pressure 132/80, 96% on 1 liter by nasal cannula. HEENT: Normocephalic, atraumatic. Eyes nonicteric. NECK: Supple, nontender, trachea midline. CARDIOVASCULAR: S1, S2 audible. LUNGS: Without any wheezes or crackles. ABDOMEN: Soft, nontender. Bowel sounds present. PEG tube present. EXTREMITIES: Without any acute edema, clubbing or cyanosis. MUSCULOSKELETAL: The patient without any acute deformities. CENTRAL NERVOUS SYSTEM: The patient is awake, alert and oriented. No gross focal defects. LABORATORY DATA: Unremarkable today. Gastrografin study from yesterday shows the PEG tube is now in the body of the stomach. IMPRESSION: 1. Altered mental status/metabolic encephalopathy, secondary to pneumonia. 2. Pneumonia. 3. Parkinsonism. 4. Therapeutic INR. PLAN: Continue current management at this time and reduce broad-spectrum antibiotics based on cultures. Continue use of oxygen supplementation and BiPAP as needed. Any other changes will be based on progression of illness per Pulmonology and the patient will be moved out of the ICU today. Cirilo Travis DO [place], [place] PROGRESS NOTE NAME: BETZAIDA MANN UNIT #: [id number] ROOM: [facility] DOCTOR: GRETA TRAVIS DO BIRTHDATE: [birth year] MICHELA WINTER MD CM:FRANKLIN [id number] GRETA TRAVIS DO 08/25/18 0111 interface
--- NOTE | ~2018-08-21 | PR ---
[place], [place] PROGRESS NOTE NAME: [facility]ANN [id number] UNIT #: [id number] ROOM: [facility] DOCTOR: MOY SCOTT MD,MICHELA BIRTHDATE: [birth year] DOS: 08/25/2018 PULMONARY PROGRESS NOTE SUBJECTIVE: The patient is independently seen and examined, including [id number] encounter, history was confirmed. The labs were reviewed. Note done by the product manager medical device was approved as well. Assessment and management today was personally completed. He has been comfortably resting this morning of assessment in the Intensive Care Unit noted awake and alert, but does not have any verbal communication, has a known history of parkinsonism as well. He has not been noted with any symptoms of fever or chills. The PEG tube of the patient has been already repositioned appropriately. PHYSICAL EXAMINATION: VITAL SIGNS: For the patient which were recorded this morning as a normal temperature, respiratory rate 20, heart rate 82, blood pressure 118/68. Pulse oxygen saturation recorded on room air is 96% saturation. HEENT: Examination shows head was atraumatic. Eyes nonicterus. NECK: Supple. CARDIOVASCULAR: S1, S2 are audible. LUNGS: The patient was noted without any wheeze or crackle at the present time. ABDOMEN: Soft, nontender. Bowel sounds present. EXTREMITIES: No new change. LABORATORY DATA: The INR of the patient noted 3.8, which is mildly about therapeutic range. CBC this morning as hemoglobin 8.5, WBC count normal, platelet count were normal. The CMP was noted to be BUN 33, creatinine 2.23. Sodium was 157, potassium 5.2. IMPRESSION: 1. The patient who has been currently treated for acute pneumonia. 2. Noted electrolyte imbalance. The patient was noted on room air of oxygen this morning. 3. Anemia, most likely chronic disease. 4. History of parkinsonism. 5. Oropharyngeal dysphagia, which is neurogenic in origin. PLAN OF MANAGEMENT: Feeding the patient. Aspiration precaution. Continue antibiotics, bronchodilators and other therapy, plan and management to be continued. Additional treatment changes, continue to be established with the patient to be made based on progression of the clinical course from the pulmonary standpoint. Other therapy, plan of management and care plan as previously instituted. Based on the culture results of blood at this time the IV vancomycin will be discontinued. The patient will be continued only on the IV Zosyn adjusted to the kidney functions. [place], [place] PROGRESS NOTE NAME: BETZAIDA MANN UNIT #: [id number] ROOM: [facility] DOCTOR: MICHELA HERNANDEZ MD BIRTHDATE: [birth year] MICHELA WINTER MD CM:PNTRANS [id number] MICHELA SCOTT MD 08/26/18 0321 interface
--- NOTE | ~2018-08-21 | PR ---
[place], [place] PROGRESS NOTE NAME: BETZAIDA MANN UNIT #: [id number] ROOM: 419 DOCTOR: MOY SCOTT MD,MICHELA BIRTHDATE: [birth year] DOS: 08/27/2018 PULMONARY PROGRESS NOTE SUBJECTIVE: The patient noted comfortable at this time. Family members were present in the room with the patient. They were not showing any signs of respiratory distress this morning of assessment. He has not been noted any cough, chest congestion this morning of assessment. OBJECTIVE: VITAL SIGNS: For the patient, which have recorded normal temperature, respiratory rate 18, heart rate 73, blood pressure 110/56. Pulse ox saturation on room air 97% saturation recorded. HEENT: Examination shows head was atraumatic. Eyes nonicterus. NECK: Supple. CARDIOVASCULAR: S1, S2 is audible. LUNGS: Without any wheeze or crackles. ABDOMEN: Soft, nontender. Bowel sounds present. EXTREMITIES: No new change. LABORATORY DATA: BMP: BUN 34, creatinine 1.34. CBC this morning, WBC count 6.2. IMPRESSION: Stable respiratory status was noted at the present time with resolving acute respiratory failure as well as acute pneumonia. PLAN OF THERAPY: No changes in the plan of care from pulmonary standpoint. Continue current therapy as in progress. Usual care. MICHELA WINTER MD CM:PNTRANS [id number] MICHELA SCOTT MD 09/05/18 0814 interface
--- NOTE | ~2018-08-21 | EKG ---
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
--- NOTE | ~2018-08-21 | EKG ---
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1950 Requested By: MAGDALENA DOOLEY Order Number: [id number] Reading MD: Tushar Lee Measurements Intervals [place] Rate: 70 P: OR: QRS: 47 QRSD: 148 T: -64 QT: QTc: Interpretive Statements Sinus rhythm Artifact in lead(s) I,II,III,aVR,aVL,aVF,V2,V4,V5,V6 Compared to ECG 08/07/2018 23:48:55 ST (T wave) deviation now present Left posterior fascicular block no longer present Early repolarization no longer present Possible ischemia no longer present Electronically Signed On 08-23-2018 13:43:20 PDT by Tushar Lee CM:EKGRPT:ELECTROCARDIOGRAM REPORT [id number] MAGDALENA COLE DRAFT REPORT MAGDALENA DOOLEY DO
--- NOTE | ~2018-08-21 | PR ---
[place], [place] PROGRESS NOTE NAME: BETZAIDA MANN UNIT #: [id number] ROOM: 419 DOCTOR: MOY SCOTT MD,MICHELA BIRTHDATE: [birth year] DOS: 08/29/2018 PULMONARY PROGRESS NOTE The patient was seen and examined. The patient has been noted very comfortable. The patient was noted restless on the bed. Physical examination performed. History could not be obtained from the patient. ASSESSMENT AND MANAGEMENT: Was personally completed. Labs were reviewed. Note done by the medical review specialist was approved as well. The patient was noted restless on the bed without any acute distress. Not noted with any oxygen requirement or use. OBJECTIVE: VITAL SIGNS: For the patient this morning was noted normal temperature, respiratory rate 18, pulse 78, blood pressure 111/63. Pulse oxygen saturation recorded on room air 95% saturation. HEENT: No acute change. CARDIOVASCULAR: S1, S2 is audible. LUNGS: The patient was noted without any wheeze or crackles. ABDOMEN: Flat, soft, nontender. EXTREMITIES: Without acute edema. IMPRESSION: 1. History of Parkinsonism. 2. Resolving acute pneumonia clinical radiologically the patient has progressively. PLAN OF MANAGEMENT: No changes in the plan of care from pulmonary standpoint. DISCHARGE PLANNING: Per primary care physician. MICHELA WINTER MD CM:PNTRANS [id number] MICHELA SCOTT MD 09/05/18 0818 interface
--- NOTE | ~2018-08-21 | PR ---
[place], [place] PROGRESS NOTE NAME: BETZAIDA MANN UNIT #: [id number] ROOM: 419 DOCTOR: GRETA TRAVIS DO BIRTHDATE: [birth year] DOS: 08/29/2018 PULMONARY PROGRESS NOTE INTERVAL HISTORY: The patient was resting in bed. The patient does not respond to verbal commands or answer questions. The patient denies any symptoms of chest pain, fevers or chills. RN stated the patient was stable overnight. OBJECTIVE: VITAL SIGNS: The patient's temperature is 98.6, pulse is 81 beats per minute, respirations 22, blood pressure 113/95, patient is 90 on room air. HEENT: Normocephalic, atraumatic. Eyes nonicteric. NECK: Supple, nontender, trachea midline. CARDIOVASCULAR: S1, S2 audible. LUNGS: Without any wheezing, crackles at this time. ABDOMEN: Soft, nontender. Bowel sounds present, PEG tube placed. EXTREMITIES: The patient does not have any acute edema. IMAGING: Chest x-ray from yesterday showed no active pulmonary disease. ASSESSMENT: The pneumonia as described on CT was very faint and it is ____ radiograph, however, the lack of worsening process is reassuring with pneumonia has been treated effectively. PLAN: No changes from pulmonary standpoint. The patient is stable for discharge from pulmonary standing. Any additional treatment will be based on progression of illness. Cirilo Travis DO MICHELA WINTER MD CM:PNTRANS [id number] GRETA TRAVIS DO 08/30/18 0359 interface
--- NOTE | ~2018-08-21 | PR ---
[place], [place] PROGRESS NOTE NAME: BETZAIDA MANN [facility] #: [id number] UNIT #: [id number] ROOM: 419 DOCTOR: SHAHID DELGADO MDVERNELLBRENNON BIRTHDATE: [birth year] DOS: 08/25/2018 SUBJECTIVE: The patient with advanced Parkinsonism and bedridden, complicated symptomatology in addition to his mental compromised as well. The patient has had a gastrojejunal combined Donna-Kian gastrostomy J tube in place. It has been functional after using it in the ICU repeatedly at precipitation of food and medications as etiology for obstruction of the site of both tubes. This was manipulated with wiring remaining and appropriate flushes. Finally, the gastrostomy tube patency was achieved and the jejunal tube was reclogged partially and infused with carbonated sodas and will be kept to have margination effect of the carbonated soda in the tubes particularly in J-tube. That is one subject that we are working on. During the stay, it has been found that the patient remains hypernatremic, hyperchloremic, hypokalemia as well is noticed. Liver function tests normal. H and H 8 and 29. Macrocytic indices with normal platelets noticed. Cultures negative. Latest INR yesterday was 4.9. I do not see any followup and INR of 4.9. Reassessment shows INR of 3.8 was noticed. LABORATORY DATA: Reviewed. Records reviewed. PAST MEDICAL HISTORY: Benign prostatic hypertrophy, hyperlipidemia, hypertension, diabetes, Parkinsonism in the past status post brain stimulator 5 years ago. REVIEW OF SYSTEMS: Difficult. CURRENT MEDICATIONS: Difficult. PHYSICAL EXAMINATION: GENERAL: Uncomfortable patient with tremens. HEENT: Benign, otherwise. NECK: Supple, no thyromegaly. CHEST: Symmetric anatomy, few rhonchi. HEART: Atrial fibrillation. ABDOMEN: Soft. No hepato-organomegaly. Bowel sounds present. PEG tube was manipulated in depth with wiring and as detailed above. PLAN AND DISCUSSION: Continuation of infusion of both ports gastric and jejunal tube with carbonated soda or caffeinated beverages or coffee. If none works then we are going to use enzymes, pancreaze with warm liquid. We are going to use variety of modalities, still eventually a J-tube becomes completely patent and after patency achieved after each use, a small flush of carbonated soda to assure removal of residual precipitation. Otherwise, as dictated above in consultation and progress report. [place], [place] PROGRESS NOTE NAME: BETZAIDA MANN UNIT #: [id number] ROOM: [facility] DOCTOR: ELIO DELGADO MD BIRTHDATE: [birth year] ELIO DELGADO MD CM:PNTRANS [phone] ELIO DELGADO MD 09/06/18 0634 interface
--- NOTE | ~2018-08-21 | CON ---
[place], [place] REPORT OF CONSULTATION NAME: BETZAIDA MANN UNIT #: [id number] ROOM: 419 DOCTOR: MOY SCOTT MDMICHELA BIRTHDATE: [birth year] DOS: 08/22/2018 PULMONARY CONSULTATION, EVALUATION AND MANAGEMENT The patient was seen and examined independently with this consultation. The assessment personally done. Medical record reviewed. The management and assessment personally completed. Note done by the medical service technician for this consultation was also approved. HISTORY OF PRESENT ILLNESS: This is a 67-year-old white male patient who has been admitted to [facility] Unit and has been treated at [facility]. He has been admitted to the hospital as noted unresponsive. The patient has been admitted to the hospital, developed unresponsive with acute hypoxia. He has been admitted to the Intensive Care Unit at midnight. He has been assessed this morning, unable to give any history, and does not responds to the vocal commands. He has been noted comfortable, lying in the bed, requiring oxygen supplementation with the nasal cannula. The patient has not been noted with any other history, has reported aspiration. There were no symptoms of hemoptysis. The patient was sedated as well. PAST MEDICAL HISTORY: The patient could not be obtained. The history reviewed with medical record documentation by the other physicians and the nurse's notes. The past medical history reported as: 1. Permanent atrial fibrillation. 2. Bright's esophagus. 3. Bipolar disorder. 4. BPH. 5. Coronary artery disease. 6. Essential hypertension. 7. Type 2 diabetes mellitus. 8. Chronic kidney disease, stage 3. 9. History of essential tremors. 10. Past history of pulmonary embolism. 11. Essential hypertension. PAST SURGICAL HISTORY: 1. Cardiac catheterization and coronary stents insertion. 2. PEG tube. 3. Deep brain stimulator Parkinson disease. 4. T and A. SOCIAL HISTORY: Noted with history of alcohol use in the past, tobacco use noted. Unknown details. Tobacco use reported in 2007 and history of previous cocaine use also reported. FAMILY HISTORY: The patient's father at the age of 86 with complication of myocardial infarction. The mother was known with history of Parkinson disease at 72 years old. CURRENT MEDICATIONS: Actively administered in this hospital were reviewed as [place], [place] REPORT OF CONSULTATION NAME: BETZAIDA MANN UNIT #: [id number] ROOM: 419 DOCTOR: MOY SCOTT MD,MICHELA BIRTHDATE: [birth year] use of DuoNeb, IV Zosyn, vancomycin, Levaquin, and some other p.r.n. meds. DRUG ALLERGIES: NOTED ALLERGY TO GEODON. PHYSICAL EXAMINATION: GENERAL: A 67-year-old male patient who has been noted currently not responsive to the vocal commands, but noted responsive to painful stimuli. Currently, comfortably lying in the bed in the Intensive Care Unit this morning of assessment. His height recorded by the nursing staff on current admission 5 feet 10 inches, weight 158 pounds, BMI 22.7. VITAL SIGNS: For the patient, which have been recorded shows a normal temperature, respiratory rate 14-16, heart rate 70-57, blood pressure 110/60. Pulse oxygen saturation on 4 liters nasal cannula was 100%. HEENT: Showed currently noted without any acute deformities. Head was atraumatic. Eyes nonicterus. NECK: Supple. CARDIOVASCULAR: S1, S2 audible. LUNGS: Noted with decreased breaths without any crackles or wheezing. ABDOMEN: Soft, nontender. Bowel sounds present. EXTREMITIES: Without any acute edema, clubbing or cyanosis. MUSCULOSKELETAL: Without any acute deformity. CENTRAL NERVOUS SYSTEM: Currently was noted with decreased responsiveness. VISIBLE SKIN: No lesions or rashes. LABORATORY DATA: CBC that was done midnight, WBC count normal, hemoglobin 9.2, platelet count was normal. Arterial blood gas as pH is 7.35, pCO2 of 47, pO2 91 on 4 liters nasal cannula. Lactic acid 0.7. CMP of the this morning, BUN 21, creatinine 2.11, glucose 146. Sodium was 146. AST, ALT was normal. CBC, which was noted on 08/22/2018, WBC count normal, hemoglobin 9.1, hematocrit 30.4, platelet count was normal. The BMP, which was noted BUN 22, creatinine 1.99. Glucose of 98. Sodium 147. PT and PTT was noted has INR 5.2, which was about the therapeutic range. Chest x-ray that was done, 1 view at midnight does not show any gross area of pulmonary infiltration. Chest CT scan noted patchy small infiltration in the lung was also noted. Past chronic rib fractures were also noted healed. The PEG tube was reported by the radiologist coursing superiorly to the mid esophagus. IMPRESSION: 1. The patient who has been currently admitted to the hospital was noted unresponsiveness with current hypoxia, which could be multifactorial as related to the medication administered with psychiatric illness, rule out metabolic encephalopathy and/or stroke as well as additional assessment. 2. History of Parkinson was noted, bilateral brain stimulator as well chronically. At this time, there were no signs infection noted at the skin site. No redness or tenderness or open areas noted. 3. Multiple other medical problems known in the history reported as well that includes the history of oropharyngeal dysphagia. Certain aspiration could be considered current positioning of the PEG tube is suggested possible aspiration, regurgitation from the esophagus and aspiration pneumonia. 4. History of essential hypertension. [place], [place] REPORT OF CONSULTATION NAME: BETZAIDA MANN UNIT #: [id number] ROOM: [facility] DOCTOR: MICHELA HERNANDEZ MD BIRTHDATE: [birth year] 5. Past history of thromboembolism. At this time, the historical detail was unknown. 6. The patient with Coumadin toxicity, most likely related to drug interaction. PLAN OF MANAGEMENT: Agree with current broad-spectrum intravenous antibiotic as the patient hospitalized for more than 3 days. Reduction of broad-spectrum antibiotic based on progression of the illness. Also assess the patient's altered mental status in addition to the already known to be done with obtaining a urine screen and ammonia level and other additional assessments to be done. Other supportive therapy, plan of management and additional treatment changes will be ordered based on the progression of the illness. Usual care, other supportive plan of management. Holding off the Coumadin is needed. No intervention needed to be done. The INR showed gradually subside therapeutic range in the lower dose could be started after that. Aspiration precaution, do not use, a PEG tube for the feeding. Consult with the GI specialist for further advice. Thanks for allowing me to participate in the care of this patient. MICHELA WINTER MD CM:CONSTR:REPORT OF CONSULTATION 1810 09/05/18 0812 interface
--- NOTE | ~2018-08-21 | PR ---
[place], [place] PROGRESS NOTE NAME: BETZAIDA MANN UNIT #: [id number] ROOM: [facility] DOCTOR: GRETA TRAVIS DO BIRTHDATE: [birth year] DOS: 08/25/2018 PULMONARY PROGRESS NOTE SUBJECTIVE: The patient showed improvement in respiratory status today. The patient has been hemodynamically stable. The patient denies any new symptoms. The patient's verbal communication is limited still. However, this is the patient's baseline. No additional review of systems is performed. The patient did have PEG tube defect and is now resumed on PEG tube feedings. OBJECTIVE: PHYSICAL EXAMINATION: VITAL SIGNS: Temperature 99.4, pulse 77, respiratory rate 21, blood pressure 97/42, pulse ox 94% on room air. HEENT: Normocephalic, atraumatic. Eyes nonicteric. NECK: Supple, nontender, trachea midline. CARDIOVASCULAR: S1, S2 audible. LUNGS: Without any wheezes or crackles bilaterally. ABDOMEN: Soft, nontender, bowel sounds present. EXTREMITIES: Without any acute edema. MUSCULOSKELETAL: Without any acute deformities. CENTRAL NERVOUS SYSTEM: The patient's mental status is improved. The patient is able to move his upper and lower extremities against gravity. No changes in neurological exam. LABORATORY DATA: Shows no acute changes today. INR is down to 3.8. ASSESSMENT: 1. Status post adjustment and correction of the PEG tube, was now positioned, this probably had something to do with whether the patient continued to vomit. However, Dr. Pop was able to fix the PEG tube at bedside. 2. Coumadin toxicity. The patient has had no bleeding. The patient's INR has improved because of the therapeutic range. 3. History of dementia. 4. Parkinson's. 5. Acute respiratory failure. PLAN OF MANAGEMENT: Continue antibiotics, bronchodilators, ____ antibiotic spectrum based on final cultures and availability. It is noted that the patient continues to improve, any additional changes based on progression of illness. Cirilo Travis DO [place], [place] PROGRESS NOTE NAME: BETZAIDA MANN UNIT #: [id number] ROOM: [facility] DOCTOR: GRETA TRAVIS DO BIRTHDATE: [birth year] MICHELA WINTER MD CM:PNCHIQUI [id number] Savage TRAVIS DO 08/26/18 0135 interface
--- NOTE | ~2018-08-21 | EKG ---
[place], [place] ELECTROCARDIOGRAM REPORT NAME: BETZAIDA MANN UNIT #: [id number] ROOM: [facility] DOCTOR: VALENTINA DRAFT REPORT BIRTHDATE: [birth year] [facility] Test Date: 2018-08-22 Test Time: 00:51:53 Pat Name: BETZAIDA MANN Department: Room: [place] [address] Gender: M Social Work Program Coordinator: : 1950 Requested By: MAGDALENA DOOLEY Order Number: [id number] Reading MD: Tushar Lee Measurements Intervals [place] Rate: 72 P: 17 MO: 164 QRS: 134 QRSD: 171 T: 231 QT: 464 QTc: 508 Interpretive Statements Sinus rhythm,Biatrial enlargement,Right bundle branch block Borderline ST depression, lateral leads Artifacts noted Compared to ECG 08/07/2018 23:48:55 Atrial abnormality now present ST (T wave) deviation now present Atrial fibrillation no longer present Left posterior fascicular block no longer present Early repolarization no longer present Possible ischemia no longer present Electronically Signed On 08-23-2018 13:40:06 PDT by Tushar Lee CM:EKGRPT:ELECTROCARDIOGRAM REPORT 0051 [id number] MAGDALENA COLE DRAFT REPORT MAGDALENA DOOLEY DO
--- NOTE | ~2018-08-21 | CON ---
[place], [place] REPORT OF CONSULTATION [id number] UNIT #: [id number] ROOM: 419 DOCTOR: SANDY BRUCEELIO BIRTHDATE: [birth year] DOS: 08/23/2018 GASTROENDOSCOPIC CONSULTATION REPORT HISTORY OF PRESENT ILLNESS: This is a 67-year-old patient who has presented with multiple medical issues among which has been his advanced parkinsonism, neurogenic dysphagia, PEG tube placement, emesis periodically been asked for assessment of the patient in regards to the PEG concerns. He had a panel of blood work done on 08/22/2018. His H and H has been 9 and 30, macrocytic indices, however. Arterial blood gases have been addressed for his suspected pneumonic aspirate complications; however, no acute abnormality on chest x-ray noticed and CT scan of the chest was organized findings compatible with multifocal pneumonic infiltrates, small sliding hiatal hernia, emphysematous changes, coronary artery calcifications, all has been recognized. PAST MEDICAL HISTORY: Associated BPH, atrial fibrillation, Bright esophagus, diabetes mellitus, hypertension, hyperlipidemia, and parkinsonism. PAST SURGICAL HISTORY: Brain stimulator, tonsillectomy, adenoidectomy, and PEG. SOCIAL HISTORY: Past smoker. Nonalcohol consumer. FAMILY HISTORY: Noncontributory. ALLERGIES: GEODON. MEDICATIONS: List has been reviewed. REVIEW OF SYSTEMS: HEENT: Denies double vision, blurred vision. RESPIRATORY: Denies acute shortness of breath. CARDIOVASCULAR: Denies chest pain. DIGESTIVE SYSTEM: Nausea. PHYSICAL EXAMINATION: VITAL SIGNS: Stable. GENERAL: Frail, bedridden nearly. HEENT: Benign for category of disease. LUNGS: Few scattered rhonchi. HEART: Atrial fibrillation, moderate ventricular response. ABDOMEN: Soft. No hepato-organomegaly. EXTREMITIES: No cyanosis, no pedal edema. Muscle wasting. NEUROLOGIC: Alert and oriented. PLAN AND DISCUSSION: Partially aphasic and dysphagia. Anterior abdominal wall addressed. Existing PEG tube was at the bedside manipulated and fixed. Additional straps were added in the outside dish of the PEG tube. Flush into the PEG was extremely easy. Aspiration from the PEG tube was easy. At this stage the abdomen with Gastrografin 20 mL flush was ordered, results pending. [place], [place] REPORT OF CONSULTATION NAME: BETZAIDA MANN UNIT #: [id number] ROOM: 419 DOCTOR: SANDY BRUCE,ELIO BIRTHDATE: [birth year] IMPRESSION AND RECOMMENDATIONS: Malfunctioning PEG tube, status post fixation and otherwise adjunctive diagnoses as outlined above in paragraph of past medical and surgical history. ELIO DELGADO MD CM:CONSTR:REPORT OF CONSULTATION 1752 09/06/18 0719 interface
--- NOTE | ~2018-08-21 | PR ---
[place], [place] PROGRESS NOTE NAME: BETZAIDA MANN UNIT #: [id number] ROOM: [facility] DOCTOR: MOY SCOTT MD,MICHELA BIRTHDATE: [birth year] DOS: 08/24/2018 PULMONARY PROGRESS NOTE The patient is independently seen and examined in [id number] encounter, history was confirmed, physical examination performed, labs were reviewed. Note done by the medical claims examiner was approved as well. SUBJECTIVE: The patient continues to show significant improvement in respiratory status, noted fully awake and alert. He has not been noted with any hemodynamic instability. The patient has not been noted with any symptoms, reported by the patient, as the patient's verbal communication is quite limited. Review of systems could not be performed. OBJECTIVE: GENERAL: The patient is resting in the bed this morning of assessment, noted fully awake and alert this morning of assessment. VITAL SIGNS: Show the temperature yesterday noted 101 degrees Fahrenheit but remained afebrile after that, respiratory rate 20, heart rate of 88, blood pressure 119/53. The pulse ox saturation recorded on room air as 94% saturation. HEENT: Examination shows head is atraumatic. Eyes nonicterus. NECK: Supple. CARDIOVASCULAR: S1 and S2 audible. LUNGS: Noted without any wheezing or crackles at the present time. ABDOMEN: Soft, nontender. Bowel sounds present. EXTREMITIES: Noted without any acute edema. MUSCULOSKELETAL: Without any acute deformity. CENTRAL NERVOUS SYSTEM: The patient with continued improvement in the mental status at this time, moving his upper and lower extremities as well. LABORATORY DATA: Vancomycin trough level 19.1. PT/INR noted elevated, INR 4.9. Gastrografin study that was completed yesterday noted PEG tube in the stomach. IMPRESSION: 1. Status post replacement of the PEG tube, which was noted malpositioned, with acute aspiration pneumonia. 2. Coumadin toxicity which has been currently noted at the present time without any evidence of active bleeding. INR is gradually improving in the therapeutic range. There are no signs of active bleeding. 3. History of dementia. 4. History of parkinsonism. PLAN OF MANAGEMENT: Continue antibiotics, bronchodilators. Reduction of antibiotic spectrum based on the final culture results availability. In the meantime, continue other therapy plan of management, care plan and treatment, and therapies. [place], [place] PROGRESS NOTE NAME: BETZAIDA MANN UNIT #: [id number] ROOM: [facility] DOCTOR: MOY SCOTT MD,MICHELA BIRTHDATE: [birth year] MICHELA WINTER MD CM:FRANKLIN [id number] MICHELA SCOTT MD 08/24/18 2333 interface
--- NOTE | ~2018-08-21 | PR ---
[place], [place] PROGRESS NOTE NAME: BETZAIDA MANN UNIT #: [id number] ROOM: 419 DOCTOR: MICHELA HERNANDEZ MD BIRTHDATE: [birth year] DOS: 08/26/2018 PULMONARY PROGRESS NOTE SUBJECTIVE: The patient was noted comfortable at this time on the bed. He has been noted without any distress this morning of assessment: The patient noted restless at times as per the nursing staff. Respiratory neves, doing well and noted on room air of oxygen this morning of assessment. PHYSICAL EXAMINATION: GENERAL: The patient was lying on the bed this morning of assessment. VITAL SIGNS: Recorded in the morning by the nursing staff as: Temperature is normal, respiratory rate of 12, heart rate of 71, and blood pressure of 95/55. Pulse oxygen saturation is recorded as 96% saturation on room air. HEENT: Examination shows head was atraumatic. EYES: No icterus. NECK: Supple. CARDIOVASCULAR SYSTEM: S1, S2 is audible. LUNGS: Not noted without any wheezing or crackles at the present time. ABDOMEN: Soft, nontender. Bowel sounds present. EXTREMITIES: No new change. LABORATORY DATA: CBC: WBC count was normal, hemoglobin was 8, and platelet count was normal. BMP this morning as BUN of 32, creatinine of 2.10, and glucose of 157. PT and INR is 2.3. IMPRESSION: History of Parkinson's disease, acute aspiration pneumonia with malpositioning of the PEG tube, which was already corrected. PLAN OF MANAGEMENT: No changes in the plan of management. The antibiotics ____ based on the current culture results. Discontinuation of the Levaquin. Continue IV Zosyn. Other therapy, plan of management. Additional treatment changes will be made based on progression of the illness. [place], [place] PROGRESS NOTE NAME: BETZAIDA MANN UNIT #: [id number] ROOM: 419 DOCTOR: MICHELA HERNANDEZ MD BIRTHDATE: [birth year] MICHELA WINTER MD CM:PNTRANS [id number] MICHELA SCOTT MD 08/27/18 0045 interface
--- NOTE | ~2018-08-21 | PR ---
[place], [place] PROGRESS NOTE NAME: [id number] UNIT #: [id number] ROOM: 419 DOCTOR: MOY SCOTT MD,MICHELA BIRTHDATE: [birth year] DOS: 08/28/2018 SUBJECTIVE: The patient was independently seen and examined in [id number] encounter, history was confirmed. Physical examination performed. Labs were reviewed. Assessment and management for today's note was personally completed. Note done by the medical laboratory specialist, was approved. The patient has been noted restless on the bed this morning. He has not been noted any vocal commands. The patient did not have any symptoms of chest pain, fever or chills. PHYSICAL EXAMINATION: VITAL SIGNS: For the patient which were recorded shows the temperature was noted as normal. The respiratory rate recorded as 20, heart rate of 74, and blood pressure 102/50. HEENT: Examination shows head was atraumatic. Eyes nonicterus. NECK: Supple. CARDIOVASCULAR: S1, S2 audible. LUNGS: The patient was noted without any wheezing or crackles at this time. ABDOMEN: Soft and nontender. Bowel sounds present. EXTREMITIES: The patient was noted without any acute edema. LABORATORY DATA: The chest x-ray was noted without any major acute infiltration, resolving previous small infiltration of the lungs would be considered as compared to CT scan of the chest. IMPRESSION: The patient has stable respiratory status, resolving acute pneumonia, history of parkinsonism with bilateral deep brain stimulation as well. PLAN OF TREATMENT: No changes from the Pulmonary standpoint was necessary. Continue current treatment plan of management as in progress. Usual care. Supportive plan of therapy and care. MICHELA IWNTER MD CM:PNTRANS [id number] MICHELA SCOTT MD 09/05/18 0817 interface
[2018-08-21 23:18] VITALS: BP 127/68
[~2018-08-21 23:33] MED LIST changes: +AMANTADINE HCL100 M1 PEG; +B12,B-12,B 12500 MC1 PO; +COUMADIN5 M2 PEG; +FOLIC ACID0.8 M1 PEG; +LEVOTHYROXINE50 MCG JT; +LITHIUM CARBON450 M1 PO; +MELATONIN5 M6 PO; +MIRALAX17 GM PO; +NORVASC5 MG PEG; +ONCE-DAILY WEL150 MG PO; +ONDANSETRON4 MG/5 M2 PEG; +PAROXETINE10 MG PO; +PROTONIX40 M2 PEG; +REGLAN5 MG PO; +SINEMET 25-1001 EACH PEG; +SINEMET CR 50-1 EACH PEG; +TEARS NATURALE,15 ML OPH; +TRANSDERM-SCOP1 EAC1 TD; +VALPROIC ACI50 MG/ML PO; +VITAMIN B-1100 M1 PEG; +VITAMIN D5000 UNIT PEG; +XANAX0.5 MG PO; +XANAX1 MG PO; +XARELTO10 MG PEG
[2018-08-22] VITALS: BP 126/68
[2018-08-22 00:35] LABS: BASO # 0.1 10*3/uL (0.0-0.1); EOS # 0.3 10*3/uL (0.0-0.4); EOS % 4.8 % (1.0-4.0); HEMATOCRIT 30.3 % (42.0-52.0); HEMOGLOBIN 9.2 g/dl (14.0-18.0); LYMPH % 30.5 % (27.0-41.0); MEAN CELL VOLUME 105.6 fl (80.0-94.0); MEAN CORPUSCULAR HGB 32.1 pg (27.0-31.0); MEAN CORPUSCULAR HGB CONC 30.4 g/dl (33.0-37.0); MEAN PLATELET VOLUME 9.6 fl (9.6-12.3); MONO # 0.5 10*3/uL (0.1-1.0); MONO % 7.9 % (3.0-9.0); NEUT # 3.7 10*3/uL (2.3-7.9); NEUT % 55.4 % (47.0-73.0); PLATELET COUNT AUTOMATED 191 10*3/uL (130-400); RED BLOOD COUNT 2.87 10*6/uL (4.50-5.90); RED CELL DISTRI WIDTH 15.9 % (0-14.5); WHITE BLOOD COUNT 6.7 10*3/uL (4.8-10.8)
[2018-08-22 00:41] LABS: ABG BASE EXCESS 0.7 mmol/L (-2.0-2.0); ABG O2 SATURATION 98.3 % (95-97); ARTERIAL BLOOD GAS PH 7.359 (7.35-7.45); ARTERIAL BLOOD GAS PO2 91.8 mmHg (80-90)
[2018-08-22 00:56] LABS: ALBUMIN 3.5 gm/dl (3.1-4.5); CREATININE 2.11 mg/dL (0.70-1.30); TOTAL PROTEIN 7.1 gm/dL (6.4-8.2); TROPONIN I 0.043 ng/ml (<0.045)
[2018-08-22 04:00] VITALS: BP 110/60
[2018-08-22 06:21] LABS: BASO # 0.1 10*3/uL (0.0-0.1); BASO % 0.7 % (0.0-1.0); EOS # 0.4 10*3/uL (0.0-0.4); EOS % 3.9 % (1.0-4.0); HEMATOCRIT 30.4 % (42.0-52.0); HEMOGLOBIN 9.1 g/dl (14.0-18.0); LYMPH # 2.9 10*3/uL (1.3-4.4); MEAN CELL VOLUME 107.4 fl (80.0-94.0); MEAN CORPUSCULAR HGB 32.2 pg (27.0-31.0); MEAN CORPUSCULAR HGB CONC 29.9 g/dl (33.0-37.0); MEAN PLATELET VOLUME 10.2 fl (9.6-12.3); MONO # 0.7 10*3/uL (0.1-1.0); MONO % 7.1 % (3.0-9.0); NEUT # 6.1 10*3/uL (2.3-7.9); NEUT % 59.8 % (47.0-73.0); PLATELET COUNT AUTOMATED 206 10*3/uL (130-400); RED BLOOD COUNT 2.83 10*6/uL (4.50-5.90); RED CELL DISTRI WIDTH 15.9 % (0-14.5); WHITE BLOOD COUNT 10.2 10*3/uL (4.8-10.8)
[2018-08-22 06:35] LABS: CREATININE 1.99 mg/dL (0.70-1.30); FREE T4 1.22 ng/dl (0.76-1.46); PHOSPHOROUS 4.6 mg/dL (2.5-4.9); POTASSIUM 4.1 mmol/L (3.5-5.1)
[2018-08-22 06:41] LABS: THYROID STIM HORMONE (HS) 2.24 uIU/ml (0.358-4.75)
[2018-08-22 06:48] LABS: ACT PARTIAL THROMBO TIME 63.3 SECONDS (20.0-32.1)
[2018-08-22 06:57] LABS: INTERNATIONAL NORM RATIO 5.2 (2.0-3.5)
[2018-08-22 12:00] VITALS: BP 110/60
[2018-08-22 16:00] VITALS: BP 110/60
[2018-08-22 19:11] LABS: URINE AMPHETAMINES < 1000 (1000ng/ml); URINE BARBITURATES < 200 (200ng/ml); URINE BENZODIAZEPINES > 200 (200ng/ml); URINE CANNABINOIDS (THC) < 50 (50ng/ml); URINE COCAINE < 300 (300ng/ml); URINE METHADONE < 300 (300ng/ml); URINE OPIATES < 300 (300ng/ml)
[2018-08-22 19:13] LABS: URINE PHENCYCLIDINE < 25 (25ng/ml)
[2018-08-22 20:00] VITALS: BP 107/51
[2018-08-23] VITALS: BP 99/46
[2018-08-23 04:00] VITALS: BP 111/61
[2018-08-23 04:49] LABS: BASO % 0.3 % (0.0-1.0); EOS # 0.3 10*3/uL (0.0-0.4); HEMATOCRIT 29.5 % (42.0-52.0); HEMOGLOBIN 8.9 g/dl (14.0-18.0); LYMPH # 1.6 10*3/uL (1.3-4.4); LYMPH % 17.8 % (27.0-41.0); MEAN CELL VOLUME 106.9 fl (80.0-94.0); MEAN CORPUSCULAR HGB 32.2 pg (27.0-31.0); MEAN CORPUSCULAR HGB CONC 30.2 g/dl (33.0-37.0); MEAN PLATELET VOLUME 9.9 fl (9.6-12.3); MONO # 0.5 10*3/uL (0.1-1.0); MONO % 5.2 % (3.0-9.0); NEUT # 6.5 10*3/uL (2.3-7.9); NEUT % 73.4 % (47.0-73.0); PLATELET COUNT AUTOMATED 163 10*3/uL (130-400); RED BLOOD COUNT 2.76 10*6/uL (4.50-5.90); RED CELL DISTRI WIDTH 16.2 % (0-14.5); WHITE BLOOD COUNT 8.9 10*3/uL (4.8-10.8)
[2018-08-23 05:34] LABS: CREATININE 2.1 mg/dL (0.70-1.30); POTASSIUM 4.5 mmol/L (3.5-5.1)
[2018-08-23 08:00] VITALS: BP 119/56
[2018-08-23 09:21] LABS: INTERNATIONAL NORM RATIO 7.8 (2.0-3.5)
[2018-08-23 12:00] VITALS: BP 124/60
[2018-08-23 16:00] VITALS: BP 109/52
[2018-08-23 20:00] VITALS: BP 118/58
[2018-08-24] VITALS: BP 132/60
[2018-08-24 04:00] VITALS: BP 132/80
[2018-08-24 08:00] VITALS: BP 119/53
[2018-08-24 08:07] LABS: INTERNATIONAL NORM RATIO 4.9 (2.0-3.5)
[2018-08-24 12:00] VITALS: BP 124/53
[2018-08-24 16:00] VITALS: BP 127/57
[2018-08-24 20:00] VITALS: BP 124/54
[2018-08-25] VITALS: BP 127/49
[2018-08-25 04:00] VITALS: BP 97/42
[2018-08-25 05:38] LABS: ALBUMIN 2.7 gm/dl (3.1-4.5); CREATININE 2.23 mg/dL (0.70-1.30); POTASSIUM 3.2 mmol/L (3.5-5.1); TOTAL PROTEIN 7.4 gm/dL (6.4-8.2)
[2018-08-25 06:04] LABS: HEMOGLOBIN 8.5 g/dl (14.0-18.0); MEAN CORPUSCULAR HGB CONC 29.3 g/dl (33.0-37.0); MEAN PLATELET VOLUME 10.8 fl (9.6-12.3); PLATELET COUNT AUTOMATED 179 10*3/uL (130-400); RED BLOOD COUNT 2.66 10*6/uL (4.50-5.90); RED CELL DISTRI WIDTH 16.4 % (0-14.5); WHITE BLOOD COUNT 7.8 10*3/uL (4.8-10.8)
[2018-08-25 06:53] LABS: PLATELET SUFFICIENCY NORMAL (NORMAL); TOTAL CELLS COUNTED 100 #CELLS
[2018-08-25 06:59] LABS: INTERNATIONAL NORM RATIO 3.8 (2.0-3.5)
[2018-08-25 08:00] VITALS: BP 118/68
[2018-08-25 12:00] VITALS: BP 125/94
[2018-08-25 16:00] VITALS: BP 99/67
[2018-08-25 20:00] VITALS: BP 103/49
[2018-08-26] VITALS: BP 93/43
[2018-08-26 04:00] VITALS: BP 100/52
[2018-08-26 05:20] LABS: INTERNATIONAL NORM RATIO 2.3 (2.0-3.5)
[2018-08-26 05:38] LABS: CREATININE 2.1 mg/dL (0.70-1.30); POTASSIUM 3.9 mmol/L (3.5-5.1)
[2018-08-26 06:01] LABS: HEMATOCRIT 28.2 % (42.0-52.0); MEAN CELL VOLUME 111.5 fl (80.0-94.0); MEAN CORPUSCULAR HGB 31.6 pg (27.0-31.0); MEAN CORPUSCULAR HGB CONC 28.4 g/dl (33.0-37.0); MEAN PLATELET VOLUME 10.8 fl (9.6-12.3); PLATELET COUNT AUTOMATED 175 10*3/uL (130-400); RED BLOOD COUNT 2.53 10*6/uL (4.50-5.90); RED CELL DISTRI WIDTH 16.3 % (0-14.5); WHITE BLOOD COUNT 6.2 10*3/uL (4.8-10.8)
[2018-08-26 06:37] LABS: PLATELET SUFFICIENCY NORMAL (NORMAL); POLYCHROMASIA SLIGHT; ROULEAUX SLIGHT; TOTAL CELLS COUNTED 100 #CELLS
[2018-08-26 08:57] VITALS: BP 95/55
[2018-08-26 12:00] VITALS: BP 110/52
[2018-08-26 16:00] VITALS: BP 118/58
[2018-08-26 16:56] LABS: CREATININE 2.21 mg/dL (0.70-1.30); POTASSIUM 3.6 mmol/L (3.5-5.1)
[2018-08-26 20:00] VITALS: BP 102/71; BP 110/50
[2018-08-27] VITALS: BP 119/65
[2018-08-27 07:05] LABS: INTERNATIONAL NORM RATIO 2.5 (2.0-3.5)
[2018-08-27 07:33] LABS: CREATININE 2.15 mg/dL (0.70-1.30); POTASSIUM 3.8 mmol/L (3.5-5.1)
[2018-08-27 08:00] VITALS: BP 110/56
[2018-08-27 12:00] VITALS: BP 120/60
[2018-08-27 16:00] VITALS: BP 110/46
[2018-08-27 20:00] VITALS: BP 104/73; BP 110/54
[2018-08-28] VITALS: BP 104/60; BP 93/64
[2018-08-28 06:25] LABS: BASO % 0.7 % (0.0-1.0); EOS # 0.5 10*3/uL (0.0-0.4); EOS % 8.2 % (1.0-4.0); HEMATOCRIT 25.1 % (42.0-52.0); HEMOGLOBIN 7.5 g/dl (14.0-18.0); LYMPH # 1.7 10*3/uL (1.3-4.4); LYMPH % 27.5 % (27.0-41.0); MEAN CELL VOLUME 105.9 fl (80.0-94.0); MEAN CORPUSCULAR HGB 31.6 pg (27.0-31.0); MEAN CORPUSCULAR HGB CONC 29.9 g/dl (33.0-37.0); MEAN PLATELET VOLUME 10.7 fl (9.6-12.3); MONO # 0.5 10*3/uL (0.1-1.0); MONO % 7.9 % (3.0-9.0); NEUT # 3.3 10*3/uL (2.3-7.9); PLATELET COUNT AUTOMATED 142 10*3/uL (130-400); RED BLOOD COUNT 2.37 10*6/uL (4.50-5.90); RED CELL DISTRI WIDTH 15.9 % (0-14.5); WHITE BLOOD COUNT 6.1 10*3/uL (4.8-10.8)
[2018-08-28 06:33] LABS: INTERNATIONAL NORM RATIO 3.6 (2.0-3.5)
[2018-08-28 06:39] LABS: CREATININE 2.09 mg/dL (0.70-1.30); POTASSIUM 3.6 mmol/L (3.5-5.1)
[2018-08-28 08:00] VITALS: BP 102/50
[2018-08-28 12:00] VITALS: BP 116/48
[2018-08-28 16:00] VITALS: BP 97/56
[2018-08-28 20:00] VITALS: BP 121/50
[2018-08-29] VITALS: BP 113/95
[2018-08-29 08:00] VITALS: BP 111/63
[2018-08-29 09:13] LABS: BASO % 0.5 % (0.0-1.0); EOS # 0.4 10*3/uL (0.0-0.4); EOS % 5.2 % (1.0-4.0); LYMPH # 2.5 10*3/uL (1.3-4.4); LYMPH % 31.4 % (27.0-41.0); MEAN CELL VOLUME 105.9 fl (80.0-94.0); MEAN CORPUSCULAR HGB 31.4 pg (27.0-31.0); MEAN CORPUSCULAR HGB CONC 29.6 g/dl (33.0-37.0); MEAN PLATELET VOLUME 10.4 fl (9.6-12.3); MONO # 0.6 10*3/uL (0.1-1.0); NEUT # 4.3 10*3/uL (2.3-7.9); NEUT % 54.3 % (47.0-73.0); PLATELET COUNT AUTOMATED 157 10*3/uL (130-400); RED BLOOD COUNT 2.55 10*6/uL (4.50-5.90); WHITE BLOOD COUNT 7.9 10*3/uL (4.8-10.8)
[2018-08-29 09:20] LABS: INTERNATIONAL NORM RATIO 3.5 (2.0-3.5)
[2018-08-29 09:41] LABS: CREATININE 2.24 mg/dL (0.70-1.30)
[2018-08-29 12:00] VITALS: BP 116/52
[2018-08-29 12:21] VITALS: BP 116/52
[2018-08-29] MEDS ORDERED: RESTORIL15 MG PO (15:14)
[2018-08-29 16:00] VITALS: BP 102/71
== END 2018-08-29 18:53 | disposition hospice, home (50) | DRG 177 ==
LOC: ICCU 23:33 → 4E 08-26 15:52
PROVIDERS: Internal Medicine; Internal Medicine Critical Care Medicine; Student in an Organized Health Care Education/Training Program; ADMIT Internal Medicine
PROC: 5A09357 Assistance with Respiratory Ventilation, Less than 24 Consecutive Hours, Continuous Positive Airway Pressure (ICD-10-PCS; principal; 2018-08-23)
PROC: 5A09357 Assistance with Respiratory Ventilation, Less than 24 Consecutive Hours, Continuous Positive Airway Pressure (ICD-10-PCS; 2018-08-25)
DX: J69.0 Pneumonitis due to inhalation of food and vomit (principal); J96.01 Acute respiratory failure with hypoxia; G93.41 Metabolic encephalopathy; E87.0 Hyperosmolality and hypernatremia; F31.31 Bipolar disorder, current episode depressed, mild; E44.1 Mild protein-calorie malnutrition; K94.23 Gastrostomy malfunction; E87.8 Other disorders of electrolyte and fluid balance, not elsewhere classified; E83.41 Hypermagnesemia; E11.22 Type 2 diabetes mellitus with diabetic chronic kidney disease; N18.3 Chronic kidney disease, stage 3 (moderate); G20 Parkinson's disease; I48.91 Unspecified atrial fibrillation; D53.9 Nutritional anemia, unspecified; Z66 Do not resuscitate; Z51.5 Encounter for palliative care; K57.90 Diverticulosis of intestine, part unspecified, without perforation or abscess without bleeding; F02.80 Dementia in other diseases classified elsewhere, unspecified severity, without behavioral disturbance, psychotic disturbance, mood disturbance, and anxiety; I25.10 Atherosclerotic heart disease of native coronary artery without angina pectoris; E78.5 Hyperlipidemia, unspecified; I12.9 Hypertensive chronic kidney disease with stage 1 through stage 4 chronic kidney disease, or unspecified chronic kidney disease; N40.0 Benign prostatic hyperplasia without lower urinary tract symptoms; R13.12 Dysphagia, oropharyngeal phase; I95.1 Orthostatic hypotension; E87.6 Hypokalemia; R79.1 Abnormal coagulation profile; Y83.3 Surgical operation with formation of external stoma as the cause of abnormal reaction of the patient, or of later complication, without mention of misadventure at the time of the procedure; T45.515A Adverse effect of anticoagulants, initial encounter; Z88.8 Allergy status to other drugs, medicaments and biological substances; Y92.128 Other place in nursing home as the place of occurrence of the external cause; Z86.711 Personal history of pulmonary embolism; Z95.5 Presence of coronary angioplasty implant and graft; Z87.891 Personal history of nicotine dependence; Z82.49 Family history of ischemic heart disease and other diseases of the circulatory system; Z83.3 Family history of diabetes mellitus; Z82.0 Family history of epilepsy and other diseases of the nervous system; Z80.8 Family history of malignant neoplasm of other organs or systems; Z79.899 Other long term (current) drug therapy; Z74.01 Bed confinement status; Z68.22 Body mass index [BMI] 22.0-22.9, adult